=== PATIENT | female | born 1980 | race Caucasian/White ===

== ENCOUNTER 2023-06-10 12:17 | Outpatient (CLI) | payer BC, SELFPAY ==
[2023-06-10 13:44] LABS: HIV 1/2 Ab P24 Ag Result Negative (Negative)
[2023-06-10 13:51] LABS: Hepatitis B Surface Antigen Negative (Negative)
[2023-06-10 13:57] LABS: HAV RESULT Negative (Negative); Hepatitis B Core IgM Result Negative (Negative)
[2023-06-10 14:19] LABS: Hepatitis C Virus Antibody Reactive (Negative)
[2023-06-10 16:01] LABS: Rapid Plasma Reagin Non-Reactive (NonReactive)
[2023-06-13 06:38] LABS: Hepatitis C RNA, Quant PCR <15 IU/mL
== END 2023-06-10 12:18 | disposition home or self-care (01) ==
LOC: ANHLAB 12:19
PROVIDERS: PCP Internal Medicine; Visit Provider Obstetrics & Gynecology
DX: Z11.3 Encounter for screening for infections with a predominantly sexual mode of transmission (principal)
CPT/HCPCS: 36415; 80074; 86592; 86695; 86696; 86703; 87522; G0432

== ENCOUNTER 2023-09-03 12:31 | Emergency (ER) | payer BC, SELFPAY ==
[2023-09-03 12:43] VITALS: BP 137/72; PULSE 67; RESP 18; TEMP 36.9; O2SAT 100
--- NOTE | 2023-09-03 13:51 | ED.BACK ---
HPI - Back Pain/Injury General Chief Complaint: Back Pain/Injury Stated Complaint: severe neck and back pain Time Seen by Provider: 09/03/23 13:04 Source: patient Mode of arrival: ambulatory Limitations: no limitations History of Present Illness HPI Narrative: Is a 42-year-old female who presents to the ED with chief complaint of acute on chronic mid to upper back pain. Reports that for the past several weeks she has had a flare up of degenerative disc disease. Reports she has had injections to the cervical spine and shoulders in the past with good relief. However over the last couple of weeks, despite PT, pain is getting worse. She called her PCP who referred her over to the ED for further evaluation treatment. Denies fevers, chills, numbness, weakness, bowel or bladder dysfunction, saddle anesthesia, cancer history or night sweats. 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 She has been told that she may need to quit her job due to aggravating her pain. Related Data Allergies Allergy/AdvReac Type Severity Reaction Status Date / Time pseudoephedrine Allergy Severe Hives Verified 09/03/23 12:47 ibuprofen Allergy Mild Unknown Verified 09/03/23 12:47 Review of Systems Review of Systems: All systems as dictated in HPI [facility] Past Medical History Medical History (Updated 09/03/23 @ 13:54 by Aditya Juarez PA-C) Anxiety Encounter for screening examination for sexually transmitted disease GERD (gastroesophageal reflux disease) Hyperlipidemia Screening mammogram, encounter for Surgical History Surgical History (Updated 06/09/23 @ 09:00 by GIOVANNA Cochran) H/O left knee surgery (01/09/22) H/O tubal ligation (~2001) H/O: hysterectomy (~08/2005) TVH tumor inside uterus History of hysteroscopy (~1997) suction D&C missed AB History of laparoscopy (01/21/07) Laparoscopy Adhesiolysis Hx of cholecystectomy Family History Family History (Updated 06/09/23 @ 08:57 by GIOVANNA Cochran) Mother Heart disease Hypertension Father Hypertension Daughter Pacemaker syndrome Social History Social History (Updated 06/09/23 @ 08:59 by GIOVANNA Cochran) Smoking status: Never smoker Tobacco type: cigarettes and e-cigarettes/vaping Second hand tobacco smoke exposure: No Alcohol intake: former Alcohol use details: stopped 02/2023 Substance use: never Substance use type: does not use Do You Feel Safe in your Home?: Yes Lack of Transportation: No Lack of Food: Never True Current Housing: I Have Housing Concerned About Future Housing: No Difficulty Paying Gas/Electric Bills: No Difficulty Paying for Meds: No Currently Unemployed: No Education: High School Diploma/GED Difficulty w/ Childcare or Family Care: No Living arrangements: other Additional living arrangements comments: Occupation/Education: occupation 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 HEAD: Normocephalic, atraumatic. EYES: PERRLA and EOMI. ENT: Nares clear, no rhinorrhea or epistaxis. Mucous membranes moist. Oropharynx without tonsillar hypertrophy exudate or other lesions. NECK: Supple. No adenopathy or masses. No meningismus CHEST: No respiratory distress. Clear to auscultation. No wheezes rales or rhonchi HEART: Regular rate and rhythm. No murmur heard. Normal peripheral pulses. ABDOMEN: Soft, nontender, nondistended, normal active bowel sounds. MSK: Mild paraspinal tenderness to the thoracic and cervical spine. No midline spinal tenderness. 5/5 strength and sensation in the upper and lower extremities. SKIN: Warm, dry, no rash. NEURO: Alert and oriented x3. No focal deficits. PSYCH: Normal mood and affect. Course Lianne
[2023-09-03] MEDS: KETOROLAC 30 MG/ML VIAL (*BKC) IM (13:56)
== END 2023-09-03 14:08 | disposition home or self-care (01) ==
PROVIDERS: Emergency Provider Physician Assistant; PCP Internal Medicine
DX: K21.9 Gastro-esophageal reflux disease without esophagitis (principal); E78.5 Hyperlipidemia, unspecified; F17.210 Nicotine dependence, cigarettes, uncomplicated; F17.290 Nicotine dependence, other tobacco product, uncomplicated; Z90.710 Acquired absence of both cervix and uterus; Z90.49 Acquired absence of other specified parts of digestive tract
CPT/HCPCS: 96372; 99283; J1885

== ENCOUNTER 2023-09-21 09:47 | Outpatient (CLI) | payer BC, SELFPAY ==
--- NOTE | ~2023-09-21 | MR_ITS ---
EXAMINATION: MR cervical spine wo con DATE: 09/21/2023 10:30 INDICATION: Cervical radicular pain. TECHNIQUE: Magnetic resonance imaging (MRI) of the cervical spine was performed without intravenous c ontrast. COMPARISON: None FINDINGS: Bone alignment is normal. Vertebral body heights and intervertebral disc heights are normal . The spinal cord signal intensity is normal. The following disc levels are specifically discussed: C2-C3: The disc does not extend beyond the endplate margin. There is no uncovertebral joint osteoarth ritis. There is mild right and moderate left facet joint osteoarthritis. There is no neural foraminal stenosis. There is no central canal stenosis. C3-C4: There is a left central extrusion. There is mild left uncovertebral joint osteoarthritis. Ther e is moderate bilateral facet joint osteoarthritis. There is mild left neural foraminal stenosis. The re is mild central canal stenosis. C4-C5: There is a right central extrusion. There is mild bilateral uncovertebral joint osteoarthritis . There is mild right and severe left facet joint osteoarthritis. There is mild bilateral neural fora stefanie stenosis. There is mild central canal stenosis. C5-C6: There is a left central extrusion. There is mild left uncovertebral joint osteoarthritis. Ther e is mild left facet joint osteoarthritis. There is mild left neural foraminal stenosis. There is mil d central canal stenosis. C6-C7: The disc does not extend beyond the endplate margin. There is mild bilateral uncovertebral joselyn nt osteoarthritis. There is moderate right and mild left facet joint osteoarthritis. There is no neur al foraminal stenosis. There is no central canal stenosis. C7-T1: The disc does not extend beyond the endplate margin. There is no uncovertebral joint osteoarth ritis. There is mild bilateral facet joint osteoarthritis. There is mild left neural foraminal stenos is. There is no central canal stenosis. IMPRESSION: 1. Mild cervical spondylosis. Reviewed, dictated and finalized at location A.
== END 2023-09-21 09:48 ==
LOC: GOSHIMG 09:48
PROVIDERS: PCP Internal Medicine; Visit Provider Pain Medicine Pain Medicine
DX: M47.22 Other spondylosis with radiculopathy, cervical region (principal)
CPT/HCPCS: 72141

== ENCOUNTER 2024-03-17 08:22 | Emergency (ER) | payer OTHER, BC, SELFPAY ==
[2024-03-17 08:29] VITALS: BP 149/69; PULSE 61; RESP 18; TEMP 36.6; O2SAT 100
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
[2024-03-17] MEDS: KETOROLAC 30 MG/ML VIAL (*BKC) 15 MG IM (08:49)
[2024-03-17] MEDS: LIDOCAINE 5% PATCH 1 PATCH TRANSDERM (08:49)
== END 2024-03-17 09:07 | disposition home or self-care (01) ==
LOC: ANHED 08:41
PROVIDERS: Emergency Provider Emergency Medicine; PCP Internal Medicine
DX: S13.4XXA Sprain of ligaments of cervical spine, initial encounter (principal); E78.5 Hyperlipidemia, unspecified; K21.9 Gastro-esophageal reflux disease without esophagitis; Z90.710 Acquired absence of both cervix and uterus; Z90.49 Acquired absence of other specified parts of digestive tract; V49.40XA Driver injured in collision with unspecified motor vehicles in traffic accident, initial encounter
CPT/HCPCS: 96372; 99283; A9270; J1885

== ENCOUNTER 2024-07-02 10:04 | Emergency (ER) | payer OTHER, BC, SELFPAY ==
--- NOTE | ~2024-07-02 | XR_ITS ---
EXAMINATION: XR wrist RT min 3V DATE: 07/02/2024 12:34 INDICATION: Right wrist injury TECHNIQUE: Posteroanterior, ulnar deviation, oblique, and lateral views of the right wrist were obtai tabatha. COMPARISON: none FINDINGS: Alignment is normal. No fracture. Joint spaces are normal. Soft tissues are unremarkable. IMPRESSION: 1. Negative right wrist radiographs. Reviewed, dictated and finalized at location A. R AND DELIVERY NURSE
--- OUTSIDE RECORDS SUMMARY | 2024-07-02 10:07 | XMS_ITS | Data Portability ---
Author Organization [facility], Main Office Address [address] [place] [address] Assessment Encounter Date Assessment Date Assessment LastModified by Organization Details LastModified Time 07/23/2022 07/23/2022 Cut the Zoloft and half get a flu shot today follow-up with me in 6 weeks Not available 08/03/2022 13:49:02 09/03/2022 09/03/2022 Continue current therapy feeling better follow-up 3 months [email or web address] Not available 09/14/2022 14:18:26 12/03/2022 12/03/2022 Will check some routine blood work and get her seen by Neurology Gets trigger point injections for her neck and back Return to clinic 4 months [email or web address] Not available 12/04/2022 08:27:37 Plan of Treatment Reminders Order Date Submit Date Provider Last Modified By Organization Details Last Modified Time Details Appointments None recorded. Lab CBC 2022 023 [facility] (Lab), [address] [place], [address], 3 18:07:49 CMP, serum or plasma [address] (Lab), [address] [place], [address], 3 18:07:49 TSH, serum or plasma [address] (Lab), [address] [place], [address], 3 18:07:49 T4, free, serum [address] (Lab), [address] [place], [address], 3 18:07:49 T3, free, serum or plasma [address] (Lab), [address] [place], [address], 3 18:07:49 vitamin B12 + folate, serum or blood [address] (Lab), [address] [place], [address], 3 18:07:49 unlisted lab - lyme disease antibod 2022 023 [facility] (Lab), [address] [place], [address], 4 13:36:17 Referral neurologist referral 2022 023 [facility] Gilbert Smith MD, [address], [address], 4 12:26:48 Procedures None recorded. Surgeries None recorded. Imaging None recorded. Medication Orders None recorded. Patient TargetsNo targets recorded. Patient InstructionsNo instructions recorded. Reason for Referral Neurologist Referral for Mem ory impairment Referring Physician: Beau Westbrook, Internal Medicine, Encounter Date: 12/03/2022 Results Created Date Observation Date Name Description Value Unit Range Abnormal Flag Note LastModifiedBy Organization Detail LastModifiedTime 06/11/19 23 06/12/2022 HCV/H EPATI TIS C RT-PC R, QUANT hepatitis C quantitation commen t IU/mL HCV Not Detec edgardo Not Available [facility] (Lab) [address] [place], [address], 06/12/2022 20:08:43 06/11/19 23 06/12/2022 HCV/H EPATI TIS C RT-PC R, QUANT test information: commen t . The quant itati ve range of this assay is 15 IU/mL to 100 connie on IU/mL . Perfo rmed at: - [facility] [place] [address] [facility] , [place] [address] Lab Direc tor: Meghann carr MD, Phone : [phone] Not Available [facility] (Lab) [address] [place], [address], 06/12/2022 20:08:43 06/11/19 23 06/12/2022 AFP, SERUM , TUMOR MARKE R AFP, serum, tumor marker 4.8 NG/mL 0.0-6. 4 [facility] Elect jaya milum inesc ence Immun oassa y (ECLI A) . Value s obtai tabatha with diffe rent assay metho ds or kits canno t be used inter mejia eably . Resul ts canno t be inter prete d as absol bhavana evide nce of the prese nce or absen ce of arian akins se. . This test is not inter preta ble in pregn ant femal es. Perfo rmed at: - [facility] n [address] [place] [address] Lab Direc tor: Sanchez jacobs PhD, Phone : [phone] Not Available [facility] (Lab) [address] [place], [address], 06/12/2022 08:14:10 06/11/19 23 06/11/2022 SEDIM ENTAT ION RATE erythrocyte sedimentatio n rate 10 mm/HR 0-20 Not Available [facility] (Lab) [address] [place] [address], [address], 06/11/2022 15:54:17 06/11/19 23 06/11/2022 TSH thyroid-stim ulating hormone 0.581 uIU/m L 0.465- 4.680 Not Available [facility] (Lab) [address] [place], [address], 06/11/2022 15:47:59 06/11/19 23 06/11/2022 LIPID PANEL cholesterol 201 mg/dL 140-19 9 high NIH KRISTOPHER NSUS RECOM MENDA TION FOR SILVIA STERO L: ADULT CHILD LOW RISK: <200 <170 BORDE RLINE : <200- 239 ----- HIGH RISK: >240 >200 Not Available [facility] (Lab) [address] [place], [address], 06/11/2022 15:35:39 06/11/19 23 06/11/2022 LIPID PANEL triglyceride s 87 mg/dL 0-150 NIH KRISTOPHER NSUS REPOR T RECOM MENDA TION FOR TRIGL YCERI MARY ANN: ADULT CHILD LOW RISK: <150 ----- BODER LINE: 150-1 99 ----- HIGH RISK: >200 ----- Not Available [facility] (Lab) [address] [place], [address], 06/11/2022 15:35:39 06/11/19 23 06/11/2022 LIPID PANEL HDL cholesterol 54 mg/dL 40- Not Available [facility] (Lab) [address] [place], [address], 06/11/2022 15:35:39 06/11/19 23 06/11/2022 LIPID PANEL LDL cholesterol, calculated 130 mg/dL 0-130 NIH KRISTOPHER NSUS REPOR T RECOM MENDA TIONS FOR LDL: ADULT CHILD LOW RISK <130 <110 (OPTI MAL LDL) <100 ----- BORDE RLINE : 130-1 59 ----- HIGH RISK: >160 >130 A TRIGL YCERI DE RESUL T >400 INVAL IDATE S THE CALCU LATIO N FOR LDL FRACT IONAT ION - THE LDL RESUL T WILL NOT BE REPOR EDGARDO. Not Available [facility] (Lab) [address] [place], [address], 06/11/2022 15:35:39 06/11/19 23 06/11/2022 COMPR EHENS SANDY METAB OLIC PANEL sodium 141 mmol/ L 137-14 5 Not Available [facility] (Lab) [address] [place], [address], 06/11/2022 15:35:35 06/11/19 23 06/11/2022 COMPR EHENS SANDY METAB OLIC PANEL potassium 4.0 mmol/ L 3.5-5. 1 Not Available [facility] (Lab) [address] [place], [address], 06/11/2022 15:35:35 06/11/19 23 06/11/2022 COMPR EHENS SANDY METAB OLIC PANEL chloride 102 mmol/ L 98-107 Not Available [facility] (Lab) [address] [place], [address], 06/11/2022 15:35:35 06/11/19 23 06/11/2022 COMPR EHENS SANDY METAB OLIC PANEL carbon dioxide 29 mmol/ L 22-30 Not Available [facility] (Lab) [address] [place], [address], 06/11/2022 15:35:35 06/11/19 23 06/11/2022 COMPR EHENS SANDY METAB OLIC PANEL anion gap 14.0 mmol/ L 14-22 Not Available [facility] (Lab) [address] [place], [address], 06/11/2022 15:35:35 06/11/19 23 06/11/2022 COMPR EHENS SANDY METAB OLIC PANEL glucose 143 mg/dL 70-99 high Not Available [facility] (Lab) [address] [place], [address], 06/11/2022 15:35:35 06/11/19 23 06/11/2022 COMPR EHENS SANDY METAB OLIC PANEL BUN 14 mg/dL 8-19 Not Available [facility] (Lab) [address] [place], [address], 06/11/2022 15:35:35 06/11/19 23 06/11/2022 COMPR EHENS SANDY METAB OLIC PANEL creatinine 0.85 mg/dL 0.66-1 .25 Not Available [facility] (Lab) [address] [place], [address], 06/11/2022 15:35:35 06/11/1906/11/2022 COMPR EHENS SANDY METAB OLIC PANEL GFR >60 Refer ence Range : [place] ge GFR Healt hy Adult : >60 mL/mi n/1.7 3 m2 Chron ic Kidne y Disea se: 15-60 mL/mi n/1.7 3 m2 Kidne y Failu re: <15/m L/min /1.73 m2 www.n iddk. nih.g ov The MDRD study equat ion has not been valid ated in child olvin <18 years of age; pregn ant women ; the elder ly >85 years of age; or in some racia l or ethni c subgr oups, such as Hiswv nics. Outsi de the valid ated darlyn eters , estim ated GFR is less accur ate, requi ring clini igor judgm ent on a case- by-ca se basis . Clini igor inter preta tion for other races and ages must be made by the clini dorene. The MDRD study equat ion has not been valid ated for the evalu ation of serum creat inine relat ed to nutri mary l statu s or medic ation usage . For perso ns <18 years of age, a pedia tric GFR calcu lator is avail able on the [facility] websi te: https ://tara christian.o rg/pr олегess ional s/kdo qi/gf r_cal culat or Not Available [facility] (Lab) [address] [place], [address], 06/11/2022 15:35:35 06/11/19 23 06/11/2022 COMPR EHENS SANDY METAB OLIC PANEL alkaline phosphatase 63 U/L 38-126 Not Available [facility] (Lab) [address] [place], [address], 06/11/2022 15:35:35 06/11/19 23 06/11/2022 COMPR EHENS SANDY METAB OLIC PANEL alanine aminotransfe rase 19 U/L 0-35 Not Available [facility] (Lab) [address] [place], [address], 06/11/2022 15:35:35 06/11/19 23 06/11/2022 COMPR EHENS SANDY METAB OLIC PANEL aspartate aminotransfe rase 26 U/L 15-37 Not Available [facility] (Lab) [address] [place], [address], 06/11/2022 15:35:35 06/11/19 23 06/11/2022 COMPR EHENS SANDY METAB OLIC PANEL bilirubin, total 0.70 mg/dL 0.20-1 .30 Not Available [facility] (Lab) [address] [place], [address], 06/11/2022 15:35:35 06/11/19 23 06/11/2022 COMPR EHENS SANDY METAB OLIC PANEL calcium 9.5 mg/dL 8.4-10 .2 Not Available [facility] (Lab) [address] [place], [address], 06/11/2022 15:35:35 06/11/19 23 06/11/2022 COMPR EHENS SANDY METAB OLIC PANEL total protein 7.6 g/dL 6.3-8. 2 Not Available [facility] (Lab) [address] [place], [address], 06/11/2022 15:35:35 06/11/19 23 06/11/2022 COMPR EHENS SANDY METAB OLIC PANEL albumin 4.4 g/dL 3.4-5. 0 Not Available [facility] (Lab) [address] [place], [address], 06/11/2022 15:35:35 06/11/19 23 06/11/2022 COMPR EHENS SANDY METAB OLIC PANEL globulin 3.2 g/dL 2.6-4. 2 Not Available [facility] (Lab) [address] [place], [address], 06/11/2022 15:35:35 06/11/19 23 06/11/2022 COMPR EHENS SANDY METAB OLIC PANEL A/G ratio 1.4 ratio 1.0-2. 0 Not Available [facility] (Lab) [address] [place], [address], 06/11/2022 15:35:35 06/11/19 23 06/11/2022 T3 FREE free T3 3.0 pg/mL 2.77-5 .27 Not Available [facility] (Lab) [address] [place], [address], 06/11/2022 15:26:23 06/11/19 23 06/11/2022 T4 FREE free T4 0.95 NG/dL 0.78-2 .19 Not Available [facility] (Lab) [address] [place], [address], 06/11/2022 15:26:21 06/11/19 23 06/11/2022 C REACT SANDY PROTE IN,UL TRA SENS C-reactive protein 0.31 mg/dL 0.0-0. 5 Not Available [facility] (Lab) [address] [facility] [place], [address], 06/11/2022 15:25:20 06/11/19 23 06/11/2022 CBC/C OMPLE TE BLD COUNT W/DIF F white blood cells 8.4 x10'3 /uL 4.2-10 .8 Not Available [facility] (Lab) [address] [place], [address], 06/11/2022 15:03:57 06/11/19 23 06/11/2022 CBC/C OMPLE TE BLD COUNT W/DIF F red blood cells 4.83 x10'6 /uL 3.80-5 .20 Not Available [facility] (Lab) [address] [place], [address], 06/11/2022 15:03:57 06/11/19 23 06/11/2022 CBC/C OMPLE TE BLD COUNT W/DIF F hemoglobin 14.6 g/dL 12.0-1 5.6 Not Available [facility] (Lab) [address] [place], [address], 06/11/2022 15:03:57 06/11/19 23 06/11/2022 CBC/C OMPLE TE BLD COUNT W/DIF F hematocrit 43.5 % 35.7-4 5.7 Not Available [facility] (Lab) [address] [place], [address], 06/11/2022 15:03:57 06/11/19 23 06/11/2022 CBC/C OMPLE TE BLD COUNT W/DIF F mean red cell volume 90.1 fL 82.0-9 9.0 Not Available [facility] (Lab) [address] [place], [address], 06/11/2022 15:03:57 06/11/19 23 06/11/2022 CBC/C OMPLE TE BLD COUNT W/DIF F mean red cell hemoglobin 30.2 pg 27.0-3 3.0 Not Available [facility] (Lab) [address] [place], [address], 06/11/2022 15:03:57 06/11/19 23 06/11/2022 CBC/C OMPLE TE BLD COUNT W/DIF F mean RBC HGB concentratio n 33.6 g/dL 31.0-3 6.0 Not Available [facility] (Lab) [address] [place], [address], 06/11/2022 15:03:57 06/11/19 23 06/11/2022 CBC/C OMPLE TE BLD COUNT W/DIF F red cell distribution width 12.0 % 11.8-1 5.5 Not Available [facility] (Lab) [address] [place], [address], 06/11/2022 15:03:57 06/11/19 23 06/11/2022 CBC/C OMPLE TE BLD COUNT W/DIF F platelets 361 x10'3 /uL 150-40 0 Not Available [facility] (Lab) [address] [place], [address], 06/11/2022 15:03:57 06/11/19 23 06/11/2022 CBC/C OMPLE TE BLD COUNT W/DIF F mean platelet volume 11.2 fL 9.0-12 .4 Not Available [facility] (Lab) [address] [place], [address], 06/11/2022 15:03:57 06/11/19 23 06/11/2022 CBC/C OMPLE TE BLD COUNT W/DIF F neutrophils 66.0 % 39.0-7 2.0 Not Available [facility] (Lab) [address] [place], [address], 06/11/2022 15:03:57 06/11/19 23 06/11/2022 CBC/C OMPLE TE BLD COUNT W/DIF F lymphocytes 27.1 % 16.0-4 7.0 Not Available [facility] (Lab) [address] [place], [address], 06/11/2022 15:03:57 06/11/19 23 06/11/2022 CBC/C OMPLE TE BLD COUNT W/DIF F monocytes 4.3 % 5.0-12 .0 low Not Available [facility] (Lab) [address] [place], [address], 06/11/2022 15:03:57 06/11/19 23 06/11/2022 CBC/C OMPLE TE BLD COUNT W/DIF F eosinophils 1.3 % 1.0-7. 0 Not Available [facility] (Lab) [address] [place], [address], 06/11/2022 15:03:57 06/11/1906/11/2022 CBC/C OMPLE TE BLD COUNT W/DIF F basophils 1.1 % 0.0-2. 0 Not Available [facility] (Lab) [address] [place], [address], 06/11/2022 15:03:57 06/11/19 23 06/11/2022 CBC/C OMPLE TE BLD COUNT W/DIF F immature granulocytes 0.2 % 0.00-0 .50 Not Available [facility] (Lab) [address] [place], [address], 06/11/2022 15:03:57 06/11/19 23 06/11/2022 CBC/C OMPLE TE BLD COUNT W/DIF F neutrophils, absolute count 5.56 x10'3 /uL 1.5-8. 0 Not Available [facility] (Lab) [address] [place], [address], 06/11/2022 15:03:57 06/11/19 23 06/11/2022 CBC/C OMPLE TE BLD COUNT W/DIF F lymphocytes, absolute count 2.28 x10'3 /uL 1.07-3 .43 Not Available [facility] (Lab) [address] [place], [address], 06/11/2022 15:03:57 06/11/19 23 06/11/2022 CBC/C OMPLE TE BLD COUNT W/DIF F monocytes, absolute count 0.36 x10'3 /uL 0.29-0 .99 Not Available [facility] (Lab) [address] [place], [address], 06/11/2022 15:03:57 06/11/19 23 06/11/2022 CBC/C OMPLE TE BLD COUNT W/DIF F eosinophils, absolute count 0.11 x10'3 /uL 0.02-0 .53 Not Available [facility] (Lab) [address] [place], [address], 06/11/2022 15:03:57 06/11/19 23 06/11/2022 CBC/C OMPLE TE BLD COUNT W/DIF F basophils, absolute count 0.09 x10'3 /uL 0.01-0 .08 high Not Available [facility] (Lab) [address] [place], [address], 06/11/2022 15:03:57 06/11/19 23 06/11/2022 CBC/C OMPLE TE BLD COUNT W/DIF F immature granulocytes ,absolute 0.02 x10'3 /uL 0.00-0 .05 Not Available [facility] (Lab) [address] [place], [address], 06/11/2022 15:03:57 06/11/19 23 06/11/2022 CBC/C OMPLE TE BLD COUNT W/DIF F nucleated red blood cells 0.0 % -0 Not Available [facility] (Lab) [address] [place], [address], 06/11/2022 15:03:57 06/11/19 23 06/11/2022 CBC/C OMPLE TE BLD COUNT W/DIF F NRBC# 0.00 x10'3 /uL Not Available [facility] (Lab) [address] [place], [address], 06/11/2022 15:03:57 12/04/19 23 12/03/2022 CBC W/O DIFFE RENTI AL white blood cells 5.3 x10'3 /uL 4.2-10 .8 Not Available [facility] (Lab) [address] [place], [address], 12/03/2022 12:08:58 12/04/19 23 12/03/2022 CBC W/O DIFFE RENTI AL red blood cells 4.49 x10'6 /uL 3.80-5 .20 Not Available [facility] (Lab) [address] [place], [address], 12/03/2022 12:08:58 12/04/19 23 12/03/2022 CBC W/O DIFFE RENTI AL hemoglobin 14.1 g/dL 12.0-1 5.6 Not Available [facility] (Lab) [address] [place], [address], 12/03/2022 12:08:58 12/04/19 23 12/03/2022 CBC W/O DIFFE RENTI AL hematocrit 41.8 % 35.7-4 5.7 Not Available [facility] (Lab) [address] [place], [address], 12/03/2022 12:08:58 12/04/1912/03/2022 CBC W/O DIFFE RENTI AL mean red cell volume 93.1 fL 82.0-9 9.0 Not Available [facility] (Lab) [address] [place], [address], 12/03/2022 12:08:58 12/04/19 23 12/03/2022 CBC W/O DIFFE RENTI AL mean red cell hemoglobin 31.4 pg 27.0-3 3.0 Not Available [facility] (Lab) [address] [place], [address], 12/03/2022 12:08:58 12/04/19 23 12/03/2022 CBC W/O DIFFE RENTI AL mean RBC HGB concentratio n 33.7 g/dL 31.0-3 6.0 Not Available [facility] (Lab) [address] [facility] [place], [address], 12/03/2022 12:08:58 12/04/19 23 12/03/2022 CBC W/O DIFFE RENTI AL red cell distribution width 11.5 % 11.8-1 5.5 low Not Available [facility] (Lab) [address] [place], [address], 12/03/2022 12:08:58 12/04/19 23 12/03/2022 CBC W/O DIFFE RENTI AL platelets 308 x10'3 /uL 150-40 0 Not Available [facility] (Lab) [address] [place], [address], 12/03/2022 12:08:58 12/04/19 23 12/03/2022 CBC W/O DIFFE RENTI AL mean platelet volume 11.2 fL 9.0-12 .4 Not Available [facility] (Lab) [address] [place], [address], 12/03/2022 12:08:58 12/04/19 23 12/03/2022 COMPR EHENS SANDY METAB OLIC PANEL sodium 140 mmol/ L 137-14 5 Not Available [facility] (Lab) [address] [place], [address], 12/03/2022 12:32:33 12/04/19 23 12/03/2022 COMPR EHENS SANDY METAB OLIC PANEL potassium 4.2 mmol/ L 3.5-5. 1 Not Available [facility] (Lab) [address] [place], [address], 12/03/2022 12:32:33 12/04/19 23 12/03/2022 COMPR EHENS SANDY METAB OLIC PANEL chloride 102 mmol/ L 98-107 Not Available [facility] (Lab) [address] [place], [address], 12/03/2022 12:32:33 12/04/19 23 12/03/2022 COMPR EHENS SANDY METAB OLIC PANEL carbon dioxide 29 mmol/ L 22-30 Not Available [facility] (Lab) [address] [place], [address], 12/03/2022 12:32:33 12/04/19 23 12/03/2022 COMPR EHENS SANDY METAB OLIC PANEL anion gap 13.2 mmol/ L 14-22 low Not Available [facility] (Lab) [address] [place], [address], 12/03/2022 12:32:33 12/04/19 23 12/03/2022 COMPR EHENS SANDY METAB OLIC PANEL glucose 92 mg/dL 70-99 Not Available [facility] (Lab) [address] [place], [address], 12/03/2022 12:32:33 12/04/19 23 12/03/2022 COMPR EHENS SANDY METAB OLIC PANEL BUN 12 mg/dL 8-19 Not Available [facility] (Lab) [address] [place], [address], 12/03/2022 12:32:33 12/04/19 23 12/03/2022 COMPR EHENS SANDY METAB OLIC PANEL creatinine 0.77 mg/dL 0.66-1 .25 Not Available [facility] (Lab) [address] [place], [address], 12/03/2022 12:32:33 12/04/19 23 12/03/2022 COMPR EHENS SANDY METAB OLIC PANEL GFR >60 Refer ence Range : [place] ge GFR Healt hy Adult : >60 mL/mi n/1.7 3 m2 Chron ic Kidne y Disea se: 15-60 mL/mi n/1.7 3 m2 Kidne y Failu re: <15/m L/min /1.73 m2 www.n iddk. nih.g ov The MDRD study equat ion has not been valid ated in child olvin <18 years of age; pregn ant women ; the elder ly >85 years of age; or in some racia l or ethni c subgr oups, such as Hispa nics. Outsi de the valid ated darlyn eters , estim ated GFR is less accur ate, requi ring clini igor judgm ent on a case- by-ca se basis . Clini igor inter preta tion for other races and ages must be made by the clini dorene. The MDRD study equat ion has not been valid ated for the evalu ation of serum creat inine relat ed to nutri mary l statu s or medic ation usage . For perso ns <18 years of age, a pedia tric GFR calcu lator is avail able on the [facility] websi te: https ://tara w.kid anahi.o rg/pr ofess ional s/kdo qi/gf r_cal culat or Not Available [facility] (Lab) [address] [place], [address], 12/03/2022 12:32:33 12/04/19 23 12/03/2022 COMPR EHENS SANDY METAB OLIC PANEL alkaline phosphatase 42 U/L 38-126 Not Available [facility] (Lab) [address] [place], [address], 12/03/2022 12:32:33 12/04/19 23 12/03/2022 COMPR EHENS SANDY METAB OLIC PANEL alanine aminotransfe rase 15 U/L 0-35 Not Available [facility] (Lab) [address] [place], [address], 12/03/2022 12:32:33 12/04/19 23 12/03/2022 COMPR EHENS SANDY METAB OLIC PANEL aspartate aminotransfe rase 22 U/L 15-37 Not Available [facility] (Lab) [address] [facility] [place], [address], 12/03/2022 12:32:33 12/04/19 23 12/03/2022 COMPR EHENS SANDY METAB OLIC PANEL bilirubin, total 0.60 mg/dL 0.20-1 .30 Not Available [facility] (Lab) [address] [place], [address], 12/03/2022 12:32:33 12/04/19 23 12/03/2022 COMPR EHENS SANDY METAB OLIC PANEL calcium 8.8 mg/dL 8.4-10 .2 Not Available [facility] (Lab) [address] [place], [address], 12/03/2022 12:32:33 12/04/19 23 12/03/2022 COMPR EHENS SANDY METAB OLIC PANEL total protein 7.5 g/dL 6.3-8. 2 Not Available [facility] (Lab) [address] [place], [address], 12/03/2022 12:32:33 12/04/19 23 12/03/2022 COMPR EHENS SANDY METAB OLIC PANEL albumin 4.5 g/dL 3.4-5. 0 Not Available [facility] (Lab) [address] [place], [address], 12/03/2022 12:32:33 12/04/19 23 12/03/2022 COMPR EHENS SANDY METAB OLIC PANEL globulin 3.0 g/dL 2.6-4. 2 Not Available [facility] (Lab) [address] [place], [address], 12/03/2022 12:32:33 12/04/19 23 12/03/2022 COMPR EHENS SANDY METAB OLIC PANEL A/G ratio 1.5 ratio 1.0-2. 0 Not Available [facility] (Lab) [address] [place], [address], 12/03/2022 12:32:33 12/04/19 23 12/03/2022 T4 FREE free T4 0.93 NG/dL 0.78-2 .19 Not Available [facility] (Lab) [address] [place], [address], 12/03/2022 12:38:34 12/04/19 23 12/03/2022 T3 FREE free T3 3.0 pg/mL 2.77-5 .27 Not Available [facility] (Lab) [address] [place], [address], 12/03/2022 12:38:37 12/04/19 23 12/03/2022 TSH thyroid-stim ulating hormone 0.509 uIU/m L 0.465- 4.680 Not Available [facility] (Lab) [address] [place], [address], 12/03/2022 12:53:19 12/04/19 23 12/03/2022 VITAM IN B12 ([place] ) vb12 407 pg/mL 239-93 1 Not Available [facility] (Lab) [address] [place], [address], 12/03/2022 13:36:05 12/04/19 23 12/03/2022 FOLAT E, SERUM /PLAS MA folate 11.0 NG/mL 2.76-2 0.0 Not Available [facility] (Lab) [address] [place], [address], 12/03/2022 13:36:11 12/04/19 23 12/04/2022 LYME, TOTAL AB TEST/ REFLE X lyme total antibody Negati ve negati ve Lyme antib odies not detec edgardo. Refle x testi ng is not indic ated. No labor atory evide nce of infec tion with B. burgd orfer i (Lyme disea se). Negat sandy resul ts may occur in patie nts recen tly infec edgardo (less than or equal to 14 days) with B. burgd orfer i. If recen t infec tion is suspe cted, repea t testi ng on a new sampl e colle cted in 7 to 14 days is recom jasen Ying rmed at: [address], [place] [address] Lab Direc tor: Sanchez jacobs PhD, Phone : [phone] Not Available [facility] (Lab) [address] [place], [address], 12/04/2022 12:12:21 06/11/19 23 06/11/2022 elect rocar diogr am No observ ation record ed. [id number] [facility] [address] [facility], [address], [address], 07/10/2022 01:49:29 06/11/19 [facility] rocmn diogr am No observ ation record ed. [id number] _[facility] [place] [address] [facility], [facility] [address], [place], [address], 07/10/2022 01:49:29 06/25/19 23 06/25/2022 , [facility] libia gram No observ ation record ed. [id number] [facility] ([facility]) [address] [place], [address], 07/10/2022 01:49:29 06/25/19 23 06/25/2022 MRI, cervi igor spine , w/o contr ast [facility] [address] [place] [address] [phone] Patien t Name: SHANNA WILLS Access ion #: [id number] Sex: F : 1980 0 Locati on: RAD Attend ing Physic kodi: LILA WESTBROOK Orderi ng Physic kodi: LILA WESTBROOK Exam Date: 023 7:04 AM Exam Name: MRI C SPINE WO Admitt ing Diagno sis(es ): RADIOL OGY REPORT - FINAL EXAM: MRI C SPINE WO HISTOR Y: dizzin ess/ce rvical radicu lopath y 41-yea r-old female with neck pain radiat ing to the left upper extrem ity, left upper extrem ity numbne ss, injury on 2021. COMPAR JAIDEN: None availa ble. TECHNI QUE: Multip lanar multis equenc e noncon trast MR images of the cervic al spine were perfor med. FINDIN GS: No fractu re or listhe sis in the cervic al spine. There is 5 mm right cerebe llar tonsil lar ectopi a. No abnorm al signal in the cervic al spinal cord. There is adenoi d tonsil lar hypert rophy with narrow ing of the Page 1 of 3 [facility] Patien t Name: SHANNA WILLS Access ion #: [id number] Sex: F : 1980 0 Exam Date: 023 7:04 AM Exam Name: MRI C SPINE WO Admitt ing Diagno sis(es ): nasoph arynge al airway . C2-C3: No signif icant discop athy, spinal canal stenos is, or neural forami nal stenos is bilate rally. There is left facet hypert rophy. C3-C4: There is a circum ferent ial broad disc bulge, most promin ent in the left parace ntral region . The AP dimens ion of the spinal canal measur es 10 mm in the midlin e. There is mild mass effect on the left anteri or margin of the cervic al spinal cord at this level (image 9, series 6; image 10, series 3). There is bilate ral facet hypert rophy and left uncina te proces s hypert rophy. There is mild left and no signif icant right neural forami nal stenos is. C4-C5: There is a centra l disc hernia tion measur ing 1.8 mm AP in the midlin e (image 13, series 6). The AP dimens ion of the spinal canal measur es 10 mm. There is mild mass effect on the anteri or margin of the cervic al spinal cord. There is bilate ral facet and uncina te proces s hypert rophy. There is mild bilate ral neural forami nal stenos is. C5-C6: No signif icant discop athy, spinal canal stenos is, or neural forami nal stenos is bilate rally. There is mild bilate ral facet hypert rophy. C6-C7: No signif icant discop athy, spinal canal stenos is, or neural forami nal stenos is bilate rally. There is mild bilate ral facet hypert rophy. IMPRES JIM: 1. No fractu re of the cervic al spine. 2. Degene rative disc diseas e and facet arthro case with mild mass effect on the cervic al spinal cord at C3-C4 and C4-C5. Recomm end spinal surger y consul tation if not alread y obtain ed. Page 2 of 3 [facility] Patien t Name: SHANNA WILLS Access ion #: [id number] Sex: F : 1980 0 Exam Date: 7:04 AM Exam Name: MRI C SPINE WO Admitt ing Diagno sis(es ): 3. No signif icant neural forami nal stenos is is identi fied at any level in the cervic al spine bilate rally. 4. 5 mm right cerebe llar tonsil lar ectopi a consis tent with border line Chiari I malfor mation . 5. Adenoi d tonsil lar hypert rophy with narrow ing of the nasoph arynge al airway . Create d and electr onical ly signed by: Steven laws MD Signed Date: 9:25 AM (CT) Dictat ed by: Steven laws MD DD: 9:25 AM (CT) DT: 2/15/2 023 9:25 AM (CT) Page 3 of 3 [id number].[id number] [facility] (Imaging) [address] [place], [address], 07/10/2022 01:49:29 06/25/19 23 06/25/2022 US, duple x, carot id arter y No observ ation record ed. [id number] [facility] Add On Lab Orders [address] [place], [address], 07/10/2022 01:49:29 06/25/19 23 06/25/2022 MRI, brain , w/o contr ast [facility] [place] [address] [facility] [place] [address] [phone] Patien t Name: SHANNA WILLS Access ion #: [id number] Sex: F : 1980 0 Locati on: RAD Attend ing Physic kodi: LILA WESTBROOK Orderi ng Physic kodi: LILA WESTBROOK Exam Date: 023 7:04 AM Exam Name: MRI BRAIN WO Admitt ing Diagno sis(es ): RADIOL OGY REPORT - FINAL EXAM: MRI BRAIN WO HISTOR Y: dizzin ess/ce rvical radicu lopath y 41-yea r-old female with dizzin ess, left upper extrem ity numbne ss. COMPAR JAIDEN: None availa ble. TECHNI QUE: Multip lanar multis equenc e noncon trast MR images of the brain were perfor med. FINDIN GS: No intrac ranial mass, midlin e shift, or hydroc ephalu s. There is an old left anteri or basal gangli a infarc t (image s 16-19, series 6 and 7). There is a tiny cavum septum pelluc idum. No eviden ce of acute infarc t on the diffus ion-we ighted images . Flow voids are presen t in the major intrac ranial vessel s. The corpus callos um, sella, and pituit ilan are unrema rkable . There Page 1 of 2 [facility] Patien t Name: SHANNA WILLS Access ion #: [id number] Sex: F : 1980 0 Exam Date: 023 7:04 AM Exam Name: MRI BRAIN WO Admitt ing Diagno sis(es ): is 5 mm right cerebe llar tonsil lar ectopi a. The optic globes are symmet sampson. There is a small mucous retent ion cyst in the right maxill ilan sinus. There is mild mucosa l thicke cora of the bilate ral maxill ilan sinuse s. The other parana patricia sinuse s are clear. There is a small right chucky bullos a. There are bilate ral Alexandra cells. The bilate ral mastoi d air cells are clear. There is adenoi d tonsil lar hypert rophy with modera te narrow ing of the nasoph arynge al airway . There is lingua l tonsil lar hypert rophy with efface ment of the vallec shad IMPRES JIM: 1. No eviden ce of acute infarc t or other acute intrac ranial proces s. 2. Old infarc t of the left basal gangli a. 3. 5 mm right cerebe llar tonsil lar ectopi a consis tent with border line Chiari I malfor mation . 4. Mild bilate ral maxill ilan sinus diseas e. 5. Adenoi d and lingua l tonsil lar hypert rophy. Create d and electr onical ly signed by: Steven laws MD Signed Date: 023 9:08 AM (CT) Dictat ed by: Steven laws MD DD: 023 9:08 AM (CT) DT: 023 9:08 AM (CT) Page 2 of 2 [id number] [facility] (Imaging) [address] [place], [address], 07/10/2022 01:49:29 07/29/19 23 merlene r monit or No observ ation record ed. [email or web address] [facility] [address], [place], [address], 08/04/2022 09:41:25 09/09/19 24 09/09/2023 XR, thora cic spine , 3 [facility] [address] [place] [address] [phone] Diann hairston Name: SHANNA WILLS Access ion #: [id number] Sex: F : 1980 1 0 Locati on: RAD Attend ing Physic kodi: LILA WESTBROOK Orderi ng Physic kodi: LILA WESTBROOK Exam Date: 09/09/19 9:45 AM Exam Name: XR T SPINE 3V Admitt ing Diagno sis(es ): RADIOL OGY REPORT - FINAL EXAM: XR T SPINE 3V HISTOR Y: THORAC IC BACK PAIN 42-yea r-old female with back pain for 1 year. COMPAR JAIDEN: None availa ble. TECHNI QUE: Three views of the thorac ic spine were perfor med. FINDIN GS: No fractu re or listhe sis are identi fied about the thorac ic spine. There is mild S-shap ed scolio sis. There is mild thorac ic degene rative disc diseas e. IMPRES JIM: 1. No fractu re of the thorac ic spine. 2. Mild thorac ic S-shap ed scolio sis and spondy losis. Page 1 of 2 [facility] Diann t Name: SHANNA WILLS Access ion #: [id number] Sex: F : 1980 1 0 Exam Date: 09/09/19 9:45 AM Exam Name: XR T SPINE 3V Admitt ing Diagno sis(es ): Create d and electr onical ly signed by: Steven laws MD Signed Date: 09/09/19 11:20 AM (CT) Dictat ed by: Steven laws MD (CT) (CT) Page 2 of [email or web address] (Imaging) [address] [place], [address], 11/24/2023 08:58:56 03/18/2003/18/2024 XR, cervi igor spine , 4 or 5 view [facility] [address] [facility] [place] [address] Patien t Name: SHANNA WILLS Access ion #: [id number] Sex: F : 1980 1 8 Dictat ed By: Allen White Attend ing Physic kodi: LILA WESTBROOK Orderi ng Physic kodi: LILA WESTBROOK Exam Date: 2023 11:38 AM Exam Name: XR C SPINE 4-5V Admitt ing Diagno sis(es ): ACCESS ION #: [id number] INDICA TION: Neck pain COMPAR JAIDEN: XR T SPINE 3V on DOS: 09/09/23 TECHNI QUE: 5 views of the cervic al spine were obtain ed. FINDIN GS: The cervic al verteb ral alignm ent is normal . The preden blanca space is normal . The interv ertebr al disc spaces are well-m aintai tabatha. No signif icant facet arthro case is noted. No acute fractu re, verteb ral compre ssion deform ity or aggres sive osseou s lesion s. The imaged lung apices are unrema rkable . IMPRES JIM: No acute fractu re. Electr onical ly Signed by: Allen White at 2023 12:48: 17 PM Page 1 [email or web address] [facility] (Imaging) [address] [place], [address], 03/24/2024 10:49:55 Result Notes None recorded. Problems Name Problem SNOMED Code Status Onset Date Resolution Date Notes Provider Name and Address Organization Details Recorded Time Electroca rdiogram abnormal 802915522 Active 2022 Not Available [facility] 3 06:59:23 Pain in left arm 365640466 Active 2022 Not Available [facility] 3 06:59:23 Pain in left arm 811264874 Active 2022 Not Available [facility] 3 06:59:23 Dizziness 459261373 Active 2022 Not Available [facility] 3 06:59:23 Cervical disc disorder 911995146 Active 2022 Not Available [facility] 3 06:59:24 Cervical radiculop athy 78769805 Active 2022 Not Available [facility] 3 06:59:24 Hyperglyc emia 77998221 Active 2022 Not Available [facility] 3 06:59:24 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 Procedures Surgical History Date Name Laterality Status Provider Name and Address Organization Details Recorded Time 2 Knee completed Not Available [facility] 3 01:48:26 Hysterectomy , Partial completed Not Available [facility] 07/10/2022 01:48:26 Imaging Results Imaging Date Name Status LastModified by Organization Details LastModified Time 06/25/2022 US, echocardiogram completed [id number] .[id number] [facility] (One Call Scheduling) [address] [place], [address], 07/10/2022 01:49:29 06/25/2022 MRI, cervical spine, w/o contrast completed MIGRATION.[id number] [facility] (Imaging) [address] [place], [address], 07/10/2022 01:49:29 06/11/2022 electrocardiogram completed MIGRATION. [id number] [facility] [address] [facility], , [place], [address], 07/10/2022 01:49:29 06/11/2022 electrocardiogram completed MIGRATION. [id number] [id number] [facility] [address], [place], [address], 07/10/2022 01:49:29 06/25/2022 US, duplex, carotid artery completed MIGRATION.[id number] [facility] Add On Lab Orders [address] [place], [address], 07/10/2022 01:49:29 06/25/2022 MRI, brain, w/o contrast completed [id number].[id number] [facility] (Imaging) [address] [place], [address], 07/10/2022 01:49:29 07/28/2022 holter monitor completed [email or web address] [facility] [address], [place], [address], 08/04/2022 09:41:25 09/09/2023 XR, thoracic spine, 3 view completed [address] (Imaging) [address] [place], [address], 11/24/2023 08:58:56 03/18/2024 XR, cervical spine, 4 or 5 view completed [address] (Imaging) [address] [place], [address], 03/24/2024 10:49:55 Procedure Notes None recorded. Medical Equipment None Reported. Allergies No known drug allergies Medications Name Sig Start Date Stop Date Status Note LastModified by Organization Details LastModified Time tizanidine 4 mg tablet TAKE 1 TABLET BY MOUTH EVERY DAY AT BEDTIME 12/03 completed Not Available Not Available Not Available hydrocodone 5 mg-acetamin ophen 325 mg tablet TAKE 1 TABLET BY MOUTH EVERY 4 TO 6 HOURS NEEDED FOR PAIN 07/23 completed Not Available Not Available Not Available meloxicam 15 mg tablet TAKE 1 TABLET BY MOUTH DAILY WITH FOOD NEEDED 07/23 completed Not Available Not Available Not Available prednisone 20 mg tablet TAKE 2 TABLETS BY MOUTH EVERY DAY 07/23 completed Not Available Not Available Not Available tramadol 50 mg tablet TAKE 1 TABLET BY MOUTH EVERY 6 TO 8 HOURS NEEDED FOR PAIN 07/23 completed Not Available Not Available Not Available Zoloft 50 mg tablet Take 1 tablet every day by oral route. 07/23 completed Not Available Not Available Not Available cephalexin 500 mg capsule TAKE 1 CAPSULE BY MOUTH FOUR TIMES DAILY 07/23 completed Not Available Not Available Not Available fluticasone propionate 50 mcg/actuati on nasal spray,suspe nsion SHAKE LIQUID AND USE 1 SPRAY IN EACH NOSTRIL TWICE DAILY 07/23 completed Not Available Not Available Not Available amoxicillin 875 mg-potassiu m clavulanate 125 mg tablet TAKE 1 TABLET BY MOUTH EVERY 12 HOURS 07/23 completed Not Available Not Available Not Available ID NOW COVID-19 Test Kit TEST DIRECTED TODAY 07/23 completed Not Available Not Available Not Available Vitals Date Recorded Body mass index (BMI) Body height Heart rate Body temperature Body weight Systolic blood pressure Diastolic blood pressure Provider Name and Address Organization Details Last Updated DateTime 3 37 kg/m2 160.02 cm 78 /min 98.8 [degF] 79172.8 1 g 112 mm[Hg] 70 mm[Hg] Not Available [facility] 3 01:48:38 Date Recorded Body mass index (BMI) Body height Heart rate Body temperature Body weight Systolic blood pressure Diastolic blood pressure Provider Name and Address Organization Details Last Updated DateTime 3 37 kg/m2 160.02 cm 77 /min 98.7 [degF] 98282.8 1 g 128 mm[Hg] 84 mm[Hg] Not Available [facility] 3 01:48:38 Date Recorded Body height Body mass index (BMI) Body weight Body temperature Heart rate Systolic blood pressure Diastolic blood pressure Provider Name and Address Organization Details Last Updated DateTime 3 160.02 cm 36.1 kg/m2 78815.8 4 g 98.6 [degF] 82 /min 118 mm[Hg] 74 mm[Hg] Duyen christensen RN [facility] [employer] [facility] 3 11:40:16 Date Recorded Body height Body mass index (BMI) Body weight Body temperature Heart rate Systolic blood pressure Diastolic blood pressure Provider Name and Address Organization Details Last Updated DateTime 3 160.02 cm 33.8 kg/m2 07440.1 4 g 98.7 [degF] 67 /min 132 mm[Hg] 76 mm[Hg] Duyen christensen RN [facility] [employer] [facility] 3 11:47:20 Date Recorded Body height Body mass index (BMI) Body weight Body temperature Heart rate Systolic blood pressure Diastolic blood pressure Provider Name and Address Organization Details Last Updated DateTime 3 160.02 cm 30.8 kg/m2 10667.0 7 g 97.7 [degF] 73 /min 112 mm[Hg] 72 mm[Hg] GIOVANNA Barnes [facility] [employer] [facility] 3 11:02:01 Social History Question Answer Notes LastModified by Swopboard[employer]at ion Details LastModified Time Tobacco Smoking Status Former Smoker Not Available [facility] 07/10/2022 01:48:14 Do You Have An Advance Directive? No MIGRATION.01065 01389 Information not available 07/10/2022 What Is Your Level Of Alcohol Consumption? Occasional MIGRATION.68524 37496 Information not available 07/10/2022 What Is Your Level Of Caffeine Consumption? Moderate MIGRATION.40189 63156 Information not available 07/10/2022 In The 14 Days Before Symptom Onset, Have You Had Close Contact With A Laboratory-confi rmed COVID-19 While That Case Was Ill? No MIGRATION.73327 27795 Information not available 07/10/2022 In The 14 Days Before Symptom Onset, Have You Had Close Contact With A Person Who Is Under Investigation For COVID-19 While That Person Was Ill? No MIGRATION.64277 30316 Information not available 07/10/2022 What Type Of Diet Are You Following? REGULAR MIGRATION.47963 36623 Information not available 07/10/2022 Do You Or Have You Ever Used E-cigarettes Or Vape? Current User Of Electronic Cigarettes MIGRATION.71075 18516 Information not available 07/10/2022 What Is The Highest Grade Or Level Of School You Have Completed Or The Highest Degree You Have Received? [id number] MIGRATION.75413 22414 Information not available 07/10/2022 What Is Your Occupation? [employer] MIGRATION.67855 46638 Information not available 07/10/2022 Have There Been Any Changes To Your Family Or Social Situation? No MIGRATION.03482 47649 Information not available 07/10/2022 What Is The Fluoride Status Of Your Home? Fluoridated MIGRATION.40739 14454 Information not available 07/10/2022 When Did You Quit Smoking? 1-5yearssincelastci garette MIGRATION.75727 80325 Information not available 07/10/2022 Are There Any Guns Present In Your Home? Yes MIGRATION.88048 71060 Information not available 07/10/2022 Do You Use Insect Repellent Routinely? No MIGRATION.63450 22767 Information not available 07/10/2022 [facility] MIGR[facility].73979 41166 Information not available 07/10/2022 Do You Have A Medical Power Of Orchestra Musician? No MIGRATION.57035 20387 Information not available 07/10/2022 What Was The Date Of Your Most Recent Tobacco Screening? 12/03/2022 [email or web address] Information not available 12/03/2022 Do You Have Any Pets? Yes MIGRATION.09258 44902 Information not available 07/10/2022 What Is Your Relationship Status? MIGRATION.25792 58179 Information not available 07/10/2022 Do You Have Smoke And Carbon Monoxide Detectors In Your Home? Yes MIGRATION.93718 56179 Information not available 07/10/2022 Are You Passively Exposed To Smoke? Yes MIGRATION.66343 04721 Information not available 07/10/2022 Are There Any Smokers In Your House? Yes MIGRATION.49941 54989 Information not available 07/10/2022 Do You Feel Stressed (tense, Restless, Nervous, Or Anxious, Or Unable To Sleep At Night)? [id number] MIGRATION.51426 45568 Information not available 07/10/2022 Do You Use Any Illicit Or Recreational Drugs? No MIGRATION.34480 07466 Information not available 07/10/2022 Do You Use Sunscreen Routinely? No MIGRATION.91341 52341 Information not available 07/10/2022 Have You Recently Traveled Abroad? No MIGRATION.96317 87831 Information not available 07/10/2022 Do You Have Any Dietary Restrictions? No MIGRATION.81675 20691 Information not available 07/10/2022 Do You Or Have You Ever Used Any Other Forms Of Tobacco Or Nicotine? Yes MIGRATION.58008 12674 Information not available 07/10/2022 How Many Years Have You Used E-cigarettes Or Vape? 3 MIGRATION.80353 15069 Information not available 07/10/2022 Sex: Unknown Functional Status Question Answer Note LastModified by Organizat ion Details LastModified Time What is your exercise level? Heavy MIGRATION.[id number] Information not available 07/10/2022 Mental Status None recorded. Family History Relationship Description Onset Age of this Age Resolved Age Notes LastModified by Organization Details LastModified Time Father Hypertensive disorder MIGRATION.774 [id number] Not available 07/10/2022 01:48:27 Father Family history of malignant neoplasm MIGRATION.357 [id number] Not available 07/10/2022 01:48:27 Mother Hypertensive disorder MIGRATION.172 [id number] Not available 07/10/2022 01:48:27 Mother Heart disease MIGRATION.003 7646110 Not available 07/10/2022 01:48:27 Mother Family history of malignant neoplasm thyroi d MIGRATION.247 [id number] Not available 07/10/2022 01:48:27 Paternal Grandmother Heart disease MIGRATION.717 2077217 Not available 07/10/2022 01:48:27 Notes:pacemaker - daughter Medical History Condition Response HEART DISEASE/HEART PROBLEMS Y ANXIETY DISORDER Y BACK / NECK PROBLEMS Y HAVE YOU BEEN HOSPITALIZED OR SEEN IN [facility] IN THE PAST YEAR ? N HEARTBURN / REFLUX Y HIGH CHOLESTEROL / HYPERLIPIDEMIA Y Gynecological HistoryNo gynecological history recorded. Obstetrics History GPAL:G 0 P 0 0 0 0 Immunizations Vaccine Type Date Status Note Provider Nam e and Address Organization Details Recorded Time Influenza, split virus, quadrivalent, PF 07/23/2022 completed Beau Westbrook MD [address] [facility], [address], [place], [address], [facility] [employer] [facility] 08/03/2022 13:49:16 Past Encounters Encounter ID Performer Location Encounter Start Date Encounter Closed Date Diagnosis/Indication Diagnosis SNOMED-CT Code Diagnosis ICD10 Code Diagnosis Note [id number] [facility] Internal Med [address] [place] [address] 06/11/2022 00:00:00 06/11/2022 23:32:59 [id number] [facility] [address] [place] [address] [address] [address] 07/02/2022 00:00:00 07/03/2022 09:37:16 [id number] Beau Westbrook MD [facility] Internal Med [facility] [address] [address] 07/23/2022 11:03:08 07/23/2022 12:32:47 Administration of influenza vaccine [id number] Z23 [id number] Beau Westbrook MD [facility] [address] [address] 09/03/2022 11:07:57 09/03/2022 12:10:15 Cervical radiculopathy 31635417 M54.12 Cervical d isc disorder 543966542 M50.11 Dizziness 422260704 R42 [id number] Beau Westbrook MD [facility] [address] [address] 12/03/2022 10:48:00 12/03/2022 11:19:43 Memory impairment 236124551 R41.3 Cervical radiculopathy 72829070 M54.12 Health Concerns Section Related Observation LastModified by Organization Detai ls LastModified Time None Recorded Concern Status LastModified by Organization Details LastModified Time None Recorded Advance Directives Directive N: Payers Encounter Date Sequence Insurance Name Policy Number Policy Greene Covered Member ID Greene Member ID Guarantor Name 07/23/2022 1 [place] [id number] Whitley Bermudez [id number] Whitley Bermudez 09/03/2022 1 [place] [id number] Whitley Bermudez [id number] Whitley Bermudez 12/03/2022 1 [place] [id number] Whitley Bermudez [id number] Whitley Bermudez Notes Date Note Type Note Provider Name and Address Organization Details Recorded Time 07/23/2022 text/html No headache and no dizziness she will be following up with the specialist [place] made her tired Beau Westbrook MD [address], [place], [address], [facility] [employer] [facility] 08/03/2022 13:49:19 09/03/2022 text/html Saw the neurosurgeon no surgery recommended physical therapy and possible injections nothing on Holter monitor Beau Westbrook MD [address], [place], [address], [employer] [facility] 09/14/2022 14:18:45 12/03/2022 text/html Trigger point injections for neck maybe a little bit better. She has some problems with memory loss she says. Says she is completely stop alcohol. Beau Westbrook MD [address], [place], [address], [employer] [facility] 12/04/2022 08:27:58 OBGyn Episode No OBEpisode recorded.
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
--- OUTSIDE RECORDS SUMMARY | 2024-07-02 10:07 | XMS_ITS | Continuity of Care Document ---
Author Organization [facility] Address [address] [place] [address] Phone Care Team Providers Care Rolling Machine Operator Automatic Name Role Phone Unavailable Unavailable Unavailable Allergies, Adverse Reactions, Alerts Substance Reaction Status Criticality No Known Allergies Active No Inform ation Medications Medication Instructions Dosage Effective Dates (start - stop) Status Comments fluticasone propionate 50 mcg/actuation nasal spray,suspension spray 1 spray by intranasal route 2 times every day in each nostril - Active simvastatin 20 mg tablet take 1 tablet by oral route every day in the evening 20 MG - Active methadone 10 mg tablet take 5.5 tablet by oral route every 8 hours 55 MG - Active Procedures Procedure Date Voided Encounter OFFICE/OUTPATIENT VISIT, EST OFFICE/OUTPATIENT VISIT, EST 1ST COMPRE PREV MED E/M NEW PT 18-39 May HEMOGLOBIN; GLYCOSYLATED (A1C) OFFICE/OUTPATIENT VISIT, NEW Advance Directives Directive Yes / No Effective Date File Name No Information Encounters Encounter Description Practice Location Reason(s) For Visit Diagnoses Date Provider Providers Copied on Encounter [facility], [address], [place], [place], [address] , [place] tel:[phone] [facility] No Information No Information OFFICE/OUTPA TIENT VISIT, EST [facility], [address], [place], [place], [address] , [place] tel:[phone] [facility] telehealth (chief complaint) Acute sinusitisNasal congestion Apr-2 7-202 2 No Information OFFICE/OUTPA TIENT VISIT, EST [facility], [address], [place], [place], [id number] , [place] tel: [phone] [facility] Test results (chief complaint) Carpal tunnel syndrome of bilateral armsFatigueShortn ess of breathChronic viral hepatitis CNasal congestionHyperli pidemia, unspecified 1 No Information 1ST COMPRE PREV MED E/M NEW PT 18-39 [facility], [address], [place], [place], [address] , [place] tel: [phone] [facility] Medical exam (chief complaint) Chronic viral hepatitis CEncounter for general adult medical exam w abnormal findingsCarpal tunnel syndrome, bilateral upper limbsShortness of breathFatigue 1 No Information OFFICE/OUTPA TIENT VISIT, NEW [facility], [address], [place], [place], [address] , [place] tel: [phone] [facility] new patient telehealth (chief complaint) Generalized Anxiety DisorderChronic viral hepatitis CFemale climacteric state 0 No Information As per patient privacy policy some of the clinical information may not be visible. Family History Family Member Type Diagnosis Age At Onset Father Problem Diabetes mellitus Mother Problem Thyroid disorder Sister Problem Cardiovascular disease Payers Payer name Insurance type Covered democrat ID Authoriza tion(s) No Information Social History Type Description Quantity Date Captured Comments Sex Female Smoking Status No Information Sexual Orientation Straight or heterosexual May Gender Identity Female Chief Complaint And Reason For Visit No Information Reason For Referral Reason For Referral No Information History Of Present Illness Encounter Date Complaint History Of Prese nt Illness telehealth Patient is a 40 year old female who presents for telehealth appointment. Reports she has felt like she has been sick for the last couple months since the end of May. Has a lot of congestion, ear pain, feeling pressure and fluid in her ears/head. has some muffled hearing, but only when I'm sick. +sinus pain.+dizziness, but only on and off.Thought it was allergies, doesn't have a history of allergies.Did try OTC medications- tried an off brand allergy pill. Has tried sudafed the last few days, but hasn't really been working either.+cough no sore throat. +body aches, fatigue.Did get covid test done about 2 days ago, hasn't gotten the results yet.Pt says that she recently got retested for Hep C and is now positive. Is wondering what she needs to do for treatment. Test results Patient is a 39 year old female who presents for test results/follow up. Patient initially seen by KORI Peguero. Hep C- cleared up.Labs- shows some hyperlipidemia. discussed diet and lifestyle changes.Carpal tunnel- not helping with braces, only wearing them at nighttime. pt says her insurance will kick in in about 30 days. Will want referral to hand surgery once that occurs. Discussed wearing braces during the daytime as well. Congestion x a few weeks. Thought it was allergies, hasn't tried taking anything for it. no cough, fever, chest pain, nausea, vomiting, headache, sore throat.Still ongoing fatigue and sob with exertion. Medical exam Patient is a 39 year old female who presents for medical exam.Pt has a couple things she would like to discuss today. bilateral hand numbness x 2 years. Pt reports it is throughout the day and will wake up in the night and shake her hands awake. Does help. Whole hand goes numb.no weakness with investigation division captain strength.no wrist pain.Pt is R handed. not worse in any hand. Has not tried any wrist braces or anything. 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 Hx of Hep C- interested in treatment.Told that she had it back at [facility] about 4-5 years ago when she had her cholecystectomy.no abdominal pain/nausea/vomiting.not currently having any insurance as she is on her 90 day probation at work.Anxiety/depression- feels like it is sometimes controlled." CHRISSIE 7 with score of 5 day, mild anxietyPHQ 9 with score of 8 today, mild depressionno SI or HI.SOB- with exertion, mainly with walking up stairs. Worse when feeling anxious and talking about things that are anxiety provoking. no chest pain.No edema recently, only has had one episode of that.Reports a lot of fatigue. 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 One used meth and fentanyl and the other used fentanyl.Did inject when she was using. Pt wondering about getting her heart looked at. Pt reports having edema about 2.5 years ago. Hasn't had it since then. No chest pain.+sob with exertion.Pt reports having a lot of weight gain after she stopped using, but has lost about 20-30# since she started working every day. no fatigue. Pt does have Hep C, interested in treatment. No other PMHx such as HTN, depression.pt believes she may have anxiety. Tends to worry a lot about things that she doesn't have any control over. Hx of anxiety treatment in the past. Hx of suicide attempt as well before her drug addiction when her father . Treated for depression at that time, but hasn't been treated since. Last pap- has been over 5 years ago. no hx abnormal pap. pt wondering about getting hormone replacement therapy, notes a lot of hot flashes. Hx of partial hysterectomy. Functional Status Date Functional Assessmen t No Information Instructions Date Instruction Additional Infor meng Augmentin rx with pr ednisonemay be some eustachian tube dysfunction.Nasal spray as well.Follow up to discuss Hepatitis C testing you recently had done Related to Acute sinusitis Call when your insur aidan kicks in and will refer for echo! Related to Shortness of breath Flonase rx Related to Nasal congestion Start statinRecheck cholesterol in about 3-6 months Related to Hyperlipidemia, unspecified Cleared, yay!! Related to Chron ic viral hepatitis C Call when your insur aidan kicks in and we can refer you to see hand surgery Related to Carpal tunnel syndrome of bilateral arms Labs today Related to Fatig ue Sister passed from c ardiomyopathy from OD Consider echo when pt gets insurance Related to Shortness of breath Use wrist braces at nighttime, can start to use during the day if you're having a lot of problemsConsider referral to hand surgery if it doesn't work Related to Carpal tunnel syndrome, bilateral upper limbs Updated labs todayFo llow up with me in 1 month to discuss Related to Chronic viral hepatitis C pt to get follow up with obgyn for annual exam. Related to Female climacteric state Will get labs and in itiate hep c treatment when she comes in person Related to Chronic viral hepatitis C Will discuss further at follow up. Consider doing CHRISSIE 7 Related to Generalized Anxiety Disorder As per patient privacy policy some of the clinical information may not be visible. Assessments Type Assessment Date No Information Patient Care Teams Name Effective Dates (start - stop) Status Members No Information
--- OUTSIDE RECORDS SUMMARY | 2024-07-02 10:07 | XMS_ITS | Clinical Summary ---
Author Organization [facility] Address [address] [place] [address] Care Team Providers Care Ice Cream Man Name Role Phone Beau Westbrook MD Primary Care Provider [phone] Beau Westbrook MD Unavailable [phone] Medications tiZANidine (ZANAFLEX) 4 MG tablet Take 1 tablet (4 mg total) by mouth nightly at bedtime. 08/20/2022 Active Social History Tobacco Use Types Packs/Day Years Used Date Smoking Tobacco: Unknown Smokeless Tobacco: Current Tobacco Cessation:Ready to Q uit: No; Counseling Given: Not Answered Comments:PT VAPES DAILY Alcohol Use Standard Drinks/Week Comments Not Currently 0 (1 standard drink = 0.6 oz pur e alcohol) Comments No Sex and Gender Information Value Date Recorded Sex Assigned at Not on file Legal Sex Female 4:29 PM CDT Gender Identity Not on file Sexual Orientation Not on file Occupation Industry Job Start Date Job End Date WORKS AT [employer] Not on file Not on file Not on file Last Filed Vital Signs Vital Sign Reading Time Taken Comments Blood Pressure 122/76 09/10/2022 1:14 PM CDT Pulse 66 09/10/2022 1:14 PM CDT Temperature 36.4 C (97.5 F) 09/10/2022 12:50 PM CDT Respiratory Rate 20 09/10/2022 1:14 PM CDT Oxygen Saturation 97% 09/10/2022 1:14 PM CDT Inhaled Oxygen Concentration - - Weight - - Height - - Body Mass Index - - Plan of Treatment Health Maintenance Due Date Last Done Comments Cervical Cancer Screening Pa p Smear (Age 30 to 64) Every 3 Years 1981 Annual Physical 1984 PHQ-2 (Physician Sun'Aq) 1993 Hepatitis C 11/13/1999 DTaP, Tdap and Td Vaccines ( 1 - Tdap) 2000 Hepatitis B Vaccines (1 of 3 - 19+ 3-dose series) 2000 Cervical Cancer Screening Pa p with HPV Testing (Age 30 to 64) Every 5 Years 11/13/2011 Cervical Cancer Screening with HPV 11/13/2011 Mammogram Screening 2021 COVID-19 Vaccine (1 - 2023-2 5 season) 2024 Influenza Adult (#1) 2024 07/23/2022 PHQ-2 (Physician Sun'Aq) 05/11/2024 HPV Vaccines Aged Out No longer eligi ble based on patient's age to complete this topic Meningococcal B Vaccine Aged Out No l onger eligible based on patient's age to complete this topic Meningococcal Vaccine Aged Out No davis ritesh eligible based on patient's age to complete this topic Pneumococcal Vaccine: Pediat rics (0 to 5 Years) and At-Risk Patients (6 to 64 Years) Aged Out No longer eligi ble based on patient's age to complete this topic RSV Immunizations Under 20 Months Aged Out No longer eligible based on patient's age to complete this topic Insurance [facility] Care Teams Ice Cream Man Relationship Specialty Start Date End Date Beau Westbrook MD [address] [facility] [address] [place] [address] PCP - General INTERNAL MEDICINE 12/08/22 Beau Westbrook MD [address] [phone] INTERNAL MEDICINE 12/08/22
--- OUTSIDE RECORDS SUMMARY | 2024-07-02 10:07 | XMS_ITS | Continuity of Care Document ---
Author Organization [facility] Address [address] [place] [address] [address] [place] [address] Phone Care Team Providers Care Nutrition Faculty Member Name Role Phone Sudha Guerra Unavailable Unavailable Procedures Procedure Date Eye Exam, New Patient Advance Directives Directive Yes / No Effective Date File Name No Information Encounters Encounter Description Practice Location Reason(s) For Visit Diagnoses Date Provider Providers Copied on Encounter [facility], [id number], [place], [place], [id number], [place] tel:[phone] [facility] No Information [address]. [address] , [address], [place], [address], [place]. tel:[phone] Family History Family Member Type Diagnosis Age At Onset No Information Payers Payer name Insurance type Covered republican ID Authoriza tion(s) Medicaid [facility] [id number] Social History Type Description Quantity Date Captured Comments Sex Female Smoking Status No Information Chief Complaint And Reason For Visit No Information Reason For Referral Reason For Referral No Information History Of Present Illness Encounter Date Complaint History Of Prese nt Illness No Information Functional Status Date Functional Assessmen t No Information Instructions Date Instruction Additional Infor mation No Information Assessments Type Assessment Date No Information Patient Care Teams Name Effective Dates (start - stop) Status Members No Information
--- OUTSIDE RECORDS SUMMARY | 2024-07-02 10:07 | XMS_ITS | Continuity of Care Document ---
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 Name Role Phone Sonu Myers Unavailable Unavailable Procedures Procedure Date Therapeutic Activities Neuromuscular Re-Ed Therapeutic Exercise Hot or Cold Pack Manual Therapy Progress Note Therapeutic Activities Neuromuscular Re-Ed Therapeutic Exercise Manual Therapy Therapeutic Activities Neuromuscular Re-Ed Therapeutic Exercise Manual Therapy Hot or Cold Pack Therapeutic Activities Neuromuscular Re-Ed Therapeutic Exercise Manual Therapy Hot or Cold Pack Therapeutic Activities Neuromuscular Re-Ed Therapeutic Exercise Manual Therapy Hot or Cold Pack PT Evaluation Moderate Complexity Neuromuscular Re-Ed Therapeutic Exercise Manual Therapy Therapeutic Activities Neuromuscular Re-Ed Therapeutic Exercise Manual Therapy Hot or Cold Pack Therapeutic Activities Neuromuscular Re-Ed Therapeutic Exercise Progress Note Therapeutic Activities Neuromuscular Re-Ed Therapeutic Exercise Hot or Cold Pack Therapeutic Activities Neuromuscular Re-Ed Therapeutic Exercise Hot or Cold Pack Therapeutic Activities Neuromuscular Re-Ed Therapeutic Exercise Manual Therapy Hot or Cold Pack PT Evaluation Moderate Complexity Neuromuscular Re-Ed Therapeutic Exercise Manual Therapy Progress Note Therapeutic Activities Neuromuscular Re-Ed Therapeutic Exercise Therapeutic Activities Neuromuscular Re-Ed Therapeutic Exercise Therapeutic Activities Therapeutic Exercise Neuromuscular Re-Ed Therapeutic Activities Neuromuscular Re-Ed Therapeutic Exercise PT Evaluation Low Complexity Therapeutic Activities Neuromuscular Re-Ed PT Re-evaluation Neuromuscular Re-Ed Therapeutic Activities Therapeutic Exercise Manual Therapy Therapeutic Activities Neuromuscular Re-Ed Therapeutic Exercise Manual Therapy Therapeutic Activities Neuromuscular Re-Ed Therapeutic Exercise Therapeutic Activities Neuromuscular Re-Ed Therapeutic Exercise Manual Therapy Hot or Cold Pack Therapeutic Activities Neuromuscular Re-Ed Therapeutic Exercise Manual Therapy Hot or Cold Pack Therapeutic Activities Neuromuscular Re-Ed Therapeutic Exercise Manual Therapy Hot or Cold Pack Therapeutic Activities Neuromuscular Re-Ed Therapeutic Exercise Manual Therapy Hot or Cold Pack PT Evaluation Moderate Complexity Therapeutic Activities Therapeutic Exercise Work Conditioning Initial 2 hrs 023 Work Conditioning add 1 hr Work Conditioning Initial 2 hrs 023 Work Conditioning add 1 hr WORK COND/WORK HARD RE EVAL Work Conditioning Initial 2 hrs 023 Work Conditioning add 1 hr Work Conditioning Initial 2 hrs 023 Work Conditioning add 1 hr Work Conditioning Initial 2 hrs 023 Work Conditioning add 1 hr Work Conditioning Initial 2 hrs 023 Work Conditioning add 1 hr Work Conditioning Initial 2 hrs 023 Work Conditioning add 1 hr Work Conditioning Initial 2 hrs 023 Work Conditioning add 1 hr Work Conditioning Initial 2 hrs 023 Work Conditioning add 1 hr Work Conditioning Initial 2 hrs 023 Work Conditioning add 1 hr Work Conditioning Initial 2 hrs 022 Work Conditioning add 1 hr Work Conditioning Initial 2 hrs 022 Work Conditioning add 1 hr WORK COND/WORK HARD RE EVAL Work Conditioning Initial 2 hrs 022 Work Conditioning add 1 hr Work Conditioning Initial 2 hrs - 022 Work Conditioning add 1 hr Work Conditioning Initial 2 hrs - 022 Work Conditioning add 1 hr Work Conditioning Initial 2 hrs - 022 Work Conditioning add 1 hr Work Conditioning Initial 2 hrs -2 022 Work Conditioning add 1 hr Work Conditioning Initial 2 hrs - 022 Work Conditioning add 1 hr Work Conditioning Initial 2 hrs - 022 Work Conditioning add 1 hr Work Conditioning Initial 2 hrs - 022 Work Conditioning add 1 hr Work Conditioning Initial 2 hrs - 022 Work Conditioning add 1 hr Work Conditioning Initial 2 hrs - 022 Work Conditioning add 1 hr Work Conditioning Initial 2 hrs - 022 Work Conditioning add 1 hr Work Conditioning Initial 2 hrs - 022 Work Conditioning add 1 hr WORK COND/WORK HARD RE EVAL Work Conditioning Initial 2 hrs - 022 Work Conditioning add 1 hr Work Conditioning Initial 2 hrs - 022 Work Conditioning add 1 hr Work Conditioning Initial 2 hrs - 022 Work Conditioning add 1 hr Work Conditioning Initial 2 hrs - 022 Work Conditioning add 1 hr Work Conditioning Initial 2 hrs - 022 Work Conditioning add 1 hr Work Conditioning Initial 2 hrs - 022 Work Conditioning add 1 hr Work Cond Initial Report Work Conditioning Initial 2 hrs - 022 Work Conditioning add 1 hr Therapeutic Exercise Hot or Cold Pack Electrical Stimulation Neuromuscular Re-Ed Therapeutic Activities Functional Testing - Other Therapeutic Exercise Therapeutic Activities Hot or Cold Pack Electrical Stimulation Neuromuscular Re-Ed Therapeutic Exercise Therapeutic Activities Hot or Cold Pack Electrical Stimulation Neuromuscular Re-Ed Therapeutic Exercise Neuromuscular Re-Ed Therapeutic Activities Hot or Cold Pack Electrical Stimulation Therapeutic Exercise Therapeutic Activities Hot or Cold Pack Electrical Stimulation Neuromuscular Re-Ed Therapeutic Exercise Therapeutic Activities Hot or Cold Pack Electrical Stimulation Neuromuscular Re-Ed Therapeutic Exercise Electrical Stimulation Therapeutic Activities Functional Testing - Other Neuromuscular Re-Ed Therapeutic Exercise Therapeutic Activities Hot or Cold Pack Electrical Stimulation Neuromuscular Re-Ed Therapeutic Exercise Therapeutic Activities Neuromuscular Re-Ed Therapeutic Activities Therapeutic Exercise Functional Testing - Other Therapeutic Exercise Therapeutic Activities Hot or Cold Pack Electrical Stimulation Neuromuscular Re-Ed Therapeutic Exercise Therapeutic Activities Neuromuscular Re-Ed Therapeutic Exercise Therapeutic Activities Hot or Cold Pack Electrical Stimulation Neuromuscular Re-Ed Therapeutic Exercise Therapeutic Activities Hot or Cold Pack Electrical Stimulation Neuromuscular Re-Ed Therapeutic Exercise Therapeutic Activities Hot or Cold Pack Electrical Stimulation Neuromuscular Re-Ed Therapeutic Exercise Hot or Cold Pack Electrical Stimulation Neuromuscular Re-Ed Therapeutic Activities Therapeutic Exercise Therapeutic Activities Neuromuscular Re-Ed Therapeutic Exercise Hot or Cold Pack Neuromuscular Re-Ed Manual Therapy Therapeutic Activities Therapeutic Exercise Neuromuscular Re-Ed Manual Therapy Therapeutic Activities PT Evaluation Low Complexity Therapeutic Activities Therapeutic Exercise Neuromuscular Re-Ed Manual Therapy Therapeutic Activities Therapeutic Exercise Therapeutic Activities Neuromuscular Re-Ed Therapeutic Exercise Therapeutic Activities Neuromuscular Re-Ed Therapeutic Exercise Neuromuscular Re-Ed Therapeutic Activities Therapeutic Exercise Hot or Cold Pack Neuromuscular Re-Ed Manual Therapy Therapeutic Activities Therapeutic Exercise Hot or Cold Pack Neuromuscular Re-Ed Manual Therapy Therapeutic Activities Therapeutic Exercise Therapeutic Activities Neuromuscular Re-Ed Therapeutic Exercise Therapeutic Activities Neuromuscular Re-Ed Therapeutic Exercise Neuromuscular Re-Ed Therapeutic Activities Therapeutic Exercise Therapeutic Activities Neuromuscular Re-Ed Therapeutic Exercise Neuromuscular Re-Ed Therapeutic Activities Neuromuscular Re-Ed Therapeutic Activities Therapeutic Exercise Neuromuscular Re-Ed Therapeutic Activities Therapeutic Exercise Neuromuscular Re-Ed Therapeutic Activities Therapeutic Exercise Hot or Cold Pack Neuromuscular Re-Ed Therapeutic Activities Therapeutic Exercise Hot or Cold Pack Neuromuscular Re-Ed Manual Therapy Therapeutic Activities Therapeutic Exercise Therapeutic Activities Neuromuscular Re-Ed Therapeutic Exercise Therapeutic Activities Neuromuscular Re-Ed Therapeutic Exercise Neuromuscular Re-Ed Therapeutic Activities Therapeutic Exercise Neuromuscular Re-Ed Therapeutic Activities Therapeutic Exercise Therapeutic Activities Therapeutic Exercise PT Evaluation Low Complexity Advance Directives Directive Yes / No Effective Date File Name No Information Encounters Encounter Description Practice Location Reason(s) For Visit Diagnoses Date Provider Providers Copied on Encounter [facility] [place] [address], [id number], tel:[phone] [place] No Information 5 Camila Ascencio. [address] [facility], [address], [facility], [place]. tel:[phone] [facility] [place] [facility] [address], [place], [id number], tel:[phone] [place] No Information 4 Camila Ascencio. [address] [facility], [address], [place], [facility], [place]. tel:[phone] Referring Provider: Beau Maloney, [address] [facility] [address], [place], [address]. tel:[phone] [facility], [id number], [place] tel:[phone] [place] No Information 4 Muehl Sonu. [address] [place] [address], [address], [place], [address], [place]. tel:[phone] Referring Provider: Beau Maloney, [address], [place], [address]. tel:[phone] [place] [address] [place] [address], [place], [place], [id number], [place] tel:[phone] [place] No Information 4 Muehl Sonu. [address] [place] [address], [address], [place], [address], [place]. tel:[phone] Referring Provider: Beau Maloney, [address], [place], [address]. tel:[phone] [place], [place] [address], [place], [id number], [place] tel:[phone] [place] No Information 4 Muehl Sonu. [address] [place] [address], [address], [place], [address], [place]. tel:[phone] Referring Provider: Beau Maloney, [address], [place], [address]. tel:[phone] [place] [address] [address], [id number], [place] tel:[phone] [place] No Information 4 Muehl Sonu. [address] [place] [address], [address], [place], [address], [place]. tel:[phone] Referring Provider: Beau Maloney, [address], [place], [address]. tel:[phone] [place] [address] [address] [place] [address], [place], [place], [id number], [place] tel:[phone] [place] No Information 4 Muehl Sonu. [address] [place] [address], [address], [place], [facility], . tel:[phone] Referring Provider: [address], [place], [address]. tel:[phone] [address], [place], [place], [id number], tel:[phone] [place] No Information Aug-2 4- 4 Muehl Sonu. [address] [place] [address], [address], [place], [facility], . tel:[phone] Referring Provider: [address], [place], [address]. tel:[phone] [place], [place] [address]uite [facility], [place], [place], [id number], tel:[phone] [place] No Information Aug-2 2- 4 Muehl Sonu. [address] [place] [address], [address], [place], [facility], . tel:[phone] Referring Provider: [address], [place], [address]. tel:[phone] [address] [facility], [place], [place], [id number], tel:[phone] [place] No Information Aug-1 4 Muehl Sonu. [address] [place] [address], [address], [place], [facility], . tel:[phone] Referring Provider: [address], [place], [address]. tel:[phone] [address], [place], [place], [id number], [place] tel:[phone] [place] No Information Aug-1 0-202 4 Muehl Sonu. [address] [place] [address], [address], [place], [facility], . tel:[phone] Referring Provider: [address], [place], [address]. tel:[phone] [address], [place], [place], [id number], tel:[phone] [place] No Information 0 4 Muehl Sonu. [address] [facility], [address], [place], [facility], . tel:[phone] Referring Provider: Beau Westbrook, [address], [place], [address]. tel:[phone], [id number], tel:[phone] [place] No Information Jul-2 4 Muehl Sonu. [address] [place] [address], [address], [place], [facility], . tel:[phone] Referring Provider: Beau Westbrook, [address], [place], [address]. tel:[phone], [id number], tel:[phone] [place] No Information 3 Dellamano Agapito. . Referring Provider: Jocelin Eagle[address], [place], [address]. tel:[phone] [facility], [place], [id number], tel:[phone] [place] No Information 3 Muehl Sonu. [address] [place] [address], [address], [place], [facility], . tel:[phone] Referring Provider: Jocelin Eagle[address], [place], [address]. tel:[phone], [id number], tel:[phone] [place] No Information 0 3 Modglin Chadd. . Referring Provider: Yoly [address], [place], [address]. tel:[phone] [facility], [address] [facility] [facility], [place], [id number], [place] tel:[phone] [place] No Information Nov-0 6-202 3 Modglin Chadd. . Referring Provider: Dawosn Moses, [address], [place], [address]. tel:[phone] [facility] [address] [facility], [place], [place], [id number], [place] tel:[phone] [place] No Information Nov-0 3-202 3 Dellamano Agapito. . Referring Provider: Dawson Moses [address], [place], [address]. tel:[phone] [facility], [address] [facility] [address], [place], [place], [address], [place] tel:[phone] [place] No Information September- 8- 3 Taccola Luke. . Referring Provider: Mikaela [address]ano [address], [place], [address]. tel:[phone] [facility] [address] [place], [place] [address]e [facility], [place], [place], [id number], [place] tel:[phone] [place] No Information September-1 5- 3 Hood Zaria. . Referring Provider: Mikaela [address]ano [address], [place], [address]. tel:[phone] [facility] [address] [place] [address], [place], [place], [id number], [place] tel:[phone] [place] No Information May-1 0-202 3 Taccola Luke. . Referring Provider: Mikaela [address]ano [address], [place], [address]. tel:[phone] [facility], [address] [place] [address], [place], [address], [place] tel:[phone] [place] No Information May-0 3-202 3 Taccola Luke. . Referring Provider: Mikaela [address]ano [address], [place], [address]. tel:[phone] [facility] [address] [place] [address], [place], [place], [address], [place] tel:[phone] [place] No Information Aug- 4-202 3 Hood Zaria. . Referring Provider: Mikaela Majano [address], [place], [address]. tel:[phone] [facility], [address] [place] [address], [place], [place], [address], [place] tel:[phone] [place] No Information 3 Taccola Luke. . Referring Provider: Mikaela Majano [address], [place], [address]. tel:[phone] [facility] [address] [place] [address], [place], [place], [id number], [place] tel:[phone] [place] No Information 3-202 3 Taccola Luke. . Referring Provider: Mikaela Majano [address], [place], [address]. tel:[phone] [facility], [address] [place] [address], [place], [place], [address], [place] tel:[phone] [place] No Information 2 3 Taccola Luke. . Referring Provider: Mikaela Majano [address], [place], [address]. tel:[phone] [facility] [place] [address], [place], [place], [id number], [place] tel:[phone] [place] No Information 6- 3 Taccola Luke. . Referring Provider: Dawson Moses, [address], [place], [address]. tel:[phone] [facility] [place] [address], [place], [place], [address], [place] tel:[phone] [place] No Information -202 3 Taccola Luke. . Referring Provider: Dawson Moses [address], [place], [address]. tel:[phone] [facility], [address] [place] [address], [place], [place], [id number], [place] tel:[phone] [place] No Information 2- 3 Abraham Kalyani. . Referring Provider: Yoly [address], [place], [address]. tel:[phone] [facility], [address] [place] [address] [address], [place], [place], [id number], tel:[phone] [place] No Information - 3 Taccola Luke. . Referring Provider: Yoly [address], [place], [address]. tel:[phone] [facility], [address] [place] [address], [place], [place], [id number], [place] tel:[phone] [place] No Information 0- 3 Taccola Luke. . Referring Provider: Yoly [address], [place], [address]. tel:[phone] [facility] [address] [place] [address], [place], [place], [id number], [place] tel:[phone] [place] No Information 9- 3 Taccola Luke. . Referring Provider: Yoly [address], [place], [address]. tel:[phone] [facility], [address] [place] [address], [place], [place], [id number], tel:[phone] [place] No Information 6-202 3 Taccola Luke. . Referring Provider: Yoly [address], [place], [address]. tel:[phone] [facility], [address] [place] [address], [place], [place], [id number], [place] tel:[phone] [place] No Information 3 Hood Zaria. . Referring Provider: Dawson Moses [address], [place], [address]. tel:[phone] [facility] [address] [place] [address], [place], [place], [address], [place] tel:[phone] [place] No Information 3 Taccola Luke. . Referring Provider: Dawson Moses [address], [place], [address]. tel:[phone] [facility], [facility] [address], [place], [place], [address], [place] tel:[phone] [place] No Information 3 Taccola Luke. . Referring Provider: Yoly [address], [place], [address]. tel:[phone] [facility] [address] [place] [address], [place], [place], [address], [place] tel:[phone] [place] No Information 2 Hood Zaira. . Referring Provider: Dawson Moses [address], [place], [address]. tel:[phone] [facility] [address] [place] [address], [place], [place], [address], [place] tel:[phone] [place] No Information 2 2 Taccola Luke. . Referring Provider: Dawson Moses [address], [place], [address]. tel:[phone] [facility], [address] [place] [address], [place], [place], [address], [place] tel:[phone] [place] No Information Dec-2 - 2 Abraham Kalyani. . Referring Provider: Dawson Moses [address], [place], [address]. tel:[phone] [facility], [address] [place] [address] [address], [place], [place], [address], tel:[phone] [place] No Information Dec-2 2 Taccola Luke. . Referring Provider: Dawson Moses [address], [place], [address]. tel:[phone] [facility], [address] [place] [address] [address], [place], [place], [id number], [place] tel:[phone] [place] No Information Dec-1 2 Taccola Luke. . Referring Provider: Dawson Moses [address], [place], [address]. tel:[phone] [facility], [address] [place] [address] [address], [place], [place], [address], [place] tel:[phone] [place] No Information Dec-1 2 Taccola Luke. . Referring Provider: Dawson Moses [address], [place], [address]. tel:[phone], [place], [place], [id number], [place] tel:[phone] [place] No Information Dec-1 2 Taccola Luke. . Referring Provider: Yoly [address], [place], [address]. tel:[phone], [place], [place], [id number], [place] tel:[phone] [place] No Information Dec-1 2 Stanley Laisha. . Referring Provider: Dawson Moses [address], [place], [address]. tel:[phone] [facility], [address] [place] [address], [place], [place], [address], [place] tel:[phone] [place] No Information Dec-1 2-202 2 Taccola Luke. . Referring Provider: Yoly [address], [place], [address]. tel:[phone] [facility] [address] [place] [address], [place], [place], [address], [place] tel:[phone] [place] No Information Dec-0 9-202 2 Taccola Luke. . Referring Provider: Yoly [address], [place], [address]. tel:[phone] [facility], [address] [place] [address], [place], [place], [id number], tel:[phone] [place] No Information Dec-0 8-202 2 Taccola Luke. . Referring Provider: Yoly [address], [place], [address]. tel:[phone] [facility] [address] [place] [address], [place], [place], [address], [place] tel:[phone] [place] No Information Dec-0 7-202 2 Taccola Luke. . Referring Provider: Yoly [address], [place], [address]. tel:[phone] [facility] [place] [address], [place], [place], [address], [place] tel:[phone] [place] No Information Dec-0 5-202 2 Taccola Luke. . Referring Provider: Yoly [address], [place], [address]. tel:[phone] [facility], [address] [place] [address], [place], [place], [id number], [place] tel:[phone] [place] No Information Dec-0 2-202 2 Taccola Luke. . Referring Provider: Dawson Moses [address], [place], [address]. tel:[phone] [place] [address] [place] [address], [place], [place], [id number], tel:[phone] [place] No Information Dec-0 1-202 2 Abraham Kalyani. . Referring Provider: Dawson Moses [address], [place], [address]. tel:[phone] [facility], [address] [place] [address] [address], [place], [place], [id number], [place] tel:[phone] [place] No Information Nov-3 0-202 2 Taccola Luke. . Referring Provider: Dawson Moses [address], [place], [address]. tel:[phone] [facility] [address] [place] [address], [place], [place], [address], [place] tel:[phone] [place] No Information Nov-2 9- 2 Liana Lety. . Referring Provider: Dawson Moses [address], [place], [address]. tel:[phone] [facility] [address], [place], [place], [address], [place] tel:[phone] [place] No Information Nov-2 8 2 Taccola Luke. . Referring Provider: Dawson Moses [address], [place], [address]. tel:[phone] [facility] [address] [place] [address], [place], [place], [address], [place] tel:[phone] [place] No Information Nov-2 5- 2 Taccola Luke. . Referring Provider: Dawson Moses [address], [place], [address]. tel:[phone] [facility], [address] [place] [address], [place], [place], [address], [place] tel:[phone] [place] No Information Nov-2 3-202 2 Taccola Luke. . Referring Provider: Yoly [address], [place], [address]. tel:[phone] [facility], [address] [place] [address], [place], [place], [address], [place] tel:[phone] [place] No Information Nov-2 2-202 2 Abraham Kalyani. . Referring Provider: Yoly [address], [place], [address]. tel:[phone] [facility] [address] [place] [address], [place], [place], [address], tel:[phone] [place] No Information Nov-1 4-202 2 Taccola Luke. . Referring Provider: Yoly [address], [place], [address]. tel:[phone] [facility] [address], [place], [place], [id number], [place] tel:[phone] [place] No Information Nov-1 1-202 2 Taccola Luke. . Referring Provider: Yoly [address], [place], [address]. tel:[phone] [facility] [address], [place], [place], [id number], [place] tel:[phone] [place] No Information Nov-0 9-202 2 Taccola Luke. . Referring Provider: Yoly [address], [place], [address]. tel:[phone] [facility] [address], [place], [place], [address], [place] tel:[phone] [place] No Information Nov-0 7-202 2 Taccola Luke. . Referring Provider: Dawson Moses [address], [place], [address]. tel:[phone] [place] [address], [place], [place], [id number], tel:[phone] [place] No Information Nov-0 4-202 2 Taccola Luke. . Referring Provider: Yoly [address], [place], [address]. tel:[phone] [facility], [address], [place], [place], [address], [place] tel:[phone] [place] No Information Nov-0 2-202 2 Taccola Luke. . Referring Provider: Yoly [address], [place], [address]. tel:[phone] [place] [address], [place], [place], [id number], [place] tel:[phone] [place] No Information Oct-3 1-202 2 Taccola Luke. . Referring Provider: Y[address], [place], [address]. tel:[phone] [facility] [address], [place], [place], [id number], [place] tel:[phone] [place] No Information Oct-2 8-202 2 Taccola Luke. . Referring Provider: Dawson Moses [address], [place], [address]. tel:[phone] [facility] [address], [place], [place], [id number], [place] tel:[phone] [place] No Information Oct-2 1-202 2 Taccola Luke. . Referring Provider: Yoly [address], [place], [address]. tel:[phone] [facility], [address], [place], [place], [id number], tel:[phone] [place] No Information Oct-1 7-202 2 Taccola Luke. . Referring Provider: Y[address], [place], [address]. tel:[phone] [facility], [address] [place] [address] [address], [place], [place], [id number], tel:[phone] [place] No Information Oct-1 2-202 2 Taccola Luke. . Referring Provider: Y[address], [place], [address]. tel:[phone], [place], [place], [id number], tel:[phone] [place] No Information Oct-1 0-202 2 Taccola Luke. . Referring Provider: Y[address], [place], [address]. tel:[phone] [facility], [facility] [address], [place], [place], [id number], tel:[phone] [place] No Information Oct-0 7-202 2 Taccola Luke. . Referring Provider: Y[address], [place], [address]. tel:[phone] [facility] [address], [place], [place], [address], [place] tel:[phone] [place] No Information Oct-0 6-202 2 Taccola Luke. . Referring Provider: Y[address], [place], [address]. tel:[phone] [facility], [address], [place], [place], [address], tel:[phone] [place] No Information Oct-0 3-202 2 Taccola Luke. . Referring Provider: Dawson Bagwe, [address], [place], [address]. tel:[phone] [facility] [address], [place], [place], [address], [place] tel:[phone] [place] No Information Sep-3 0-202 2 Taccola Luke. . Referring Provider: Y[address], [place], [address]. tel:[phone] [facility], [address], [place], [place], [id number], [place] tel:[phone] [place] No Information Sep-2 8-202 2 Taccola Luke. . Referring Provider: Y[address], [place], [address]. tel:[phone] [facility], [facility] [address], [place], [place], [address], [place] tel:[phone] [place] No Information Sep-2 6-202 2 Taccola Luke. . Referring Provider: [address], [place], [address]. tel:[phone] [facility] [address], [place], [place], [id number], [place] tel:[phone] [place] No Information Sep-2 3-202 2 Taccola Luke. . Referring Provider: Y[address], [place], [address]. tel:[phone] [facility] [address], [place], [place], [address], [place] tel:[phone] [place] No Information Sep-2 0-202 2 Taccola Luke. . Referring Provider: Yoly [address], [place], [address]. tel:[phone] [facility], [address], [place], [place], [id number], [place] tel:[phone] [place] No Information 2 Hood Zaria. . Referring Provider: Cecile Rootamparo , [place], [address]. tel:[phone] [facility], [address] [place], [place] [address], [place], [place], [address], tel:[phone] [place] No Information 2 Taccola Luke. . Referring Provider: [facility], [place], [address]. tel:[phone] [place] [address], [address] [place] [address], [place], [place], [id number], tel:[phone] [place] No Information 2 Taccola Luke. . Referring Provider: Cecile Rootamparo , [place], [address]. tel:[phone] [place] [address], [address] [place] [address], [place], [place], [id number], [place] tel:[phone] [place] No Information 2 Taccola Luke. . Referring Provider: Cecile Rootamparo , [place], [address]. tel:[phone] [facility], [address] [place] [address], [place], [place], [id number], [place] tel:[phone] [place] No Information 2 Taccola Luke. . Referring Provider: Cecile Rootamparo , [place], [address]. tel:[phone] [facility], [address] [place] [address], [place], [place], [id number], [place] tel:[phone] [place] No Information 2 Hood Zaria. . Referring Provider: Cecile Root , [place], [address]. tel:[phone] [facility], [address], [place], [place], [id number], [place] tel:[phone] [place] No Information 1 2 Taccola Luke. . Referring Provider: [facility], [place], [address]. tel:[phone] [facility] [address], [place], [place], [id number], [place] tel:[phone] [place] No Information 0 2 Taccola Luke. . Referring Provider: [facility], [place], [address]. tel:[phone] [place] [address], [address] [place] [address], [place], [place], [id number], tel:[phone] [place] No Information Dec-0 2 Hood Zaria. . Referring Provider: [facility], [place], [address]. tel:[phone] [place] [address], [address] [place] [address], [place], [id number], tel:[phone] [place] No Information 0 2 Liana Lety. . Referring Provider: Cecile Rootamparo , [place], [address]. tel:[phone] [facility], [address], [place], [place], [address], [place] tel:[phone] [place] No Information 0 2 Liana Lety. . Referring Provider: [facility], [place], [address]. tel:[phone] [facility], [address], [place], [place], [id number], [place] tel:[phone] [place] No Information 2 Lance sosa . Referring Provider: Maurice Clayton, Ivonne4 [facility], [place], [address]. tel:[phone] [facility], [address], [place], [place], [id number], [place] tel:[phone] [place] No Information 2 Taccola Luke. . Referring Provider: Cecile Root [facility], [place], [address]. tel:[phone] [facility], [facility] [address], [place], [place], [address], [place] tel:[phone] [place] No Information 2 Taccola Luke. . Referring Provider: Cecile Root [facility], [place], [address]. tel:[phone] [facility], [address] [place], [place] [address], [place], [place], [id number], [place] tel:[phone] [place] No Information 2 Lance sosa . Referring Provider: Cecile Root [facility], [place], [address]. tel:[phone] [facility], [address] [place], [place] [address], [place], [place], [address], [place] tel:[phone] [place] No Information 2 Taccola Luke. . Referring Provider: Cecile Root [facility], [place], [address]. tel:[phone] [facility], [address], [place], [place], [address], [place] tel:[phone] [place] No Information 2 Taccola Luke. . Referring Provider: Cecile Root [facility], [place], [address]. tel:[phone] [facility], [address] [address], [place], [place], [address], tel:[phone] [place] No Information 2 Taccola Luke. . Referring Provider: Cec[address], [place], [address]. tel:[phone] [place] [address] [place] [address], [place], [place], [address], tel:[phone] [place] No Information 2 Taccola Luke. . Referring Provider: Cecile Rootamparo [address], [place], [address]. tel:[phone] [place] [address], [place], [place], [address], tel:[phone] [place] No Information 0 2 Taccola Luke. . Referring Provider: Cec[address], [place], [address]. tel:[phone], [id number], tel:[phone] [place] No Information 2 Taccola Luke. . Referring Provider: Cec[address], [place], [address]. tel:[phone], [id number], tel:[phone] [place] No Information 2 Taccola Luke. . Referring Provider: Cec[address], [place], [address]. tel:[phone] Family History Family Member Type Diagnosis Age At Onset No Information Payers Payer name Insurance type Covered green party ID Annmarie reid(s) [facility] [id number] Social History Type Description Quantity Date Captured Comments Sex Female Smoking Status No Information Chief Complaint And Reason For Visit No Information Reason For Referral Reason For Referral No Information History Of Present Illness Encounter Date Complaint History Of Prese nt Illness No Information Functional Status Date Functional Assessmen t No Information Instructions Date Instruction Additional Infor meng Dietary needs education Related to Overweight Prescribed activity/exercise edu cation Related to Overweight Dietary needs education Related to Overweight Dietary needs education Related to Overweight Dietary needs education Related to Overweight Dietary needs education Related to Overweight Prescribed activity/exercise edu cation Related to Overweight Prescribed activity/exercise edu cation Related to Overweight Prescribed activity/exercise edu cation Related to Overweight Prescribed activity/exercise edu cation Related to Overweight Assessments Type Assessment Date No Information Patient Care Teams Name Effective Dates (start - stop) Status Members No Information
[2024-07-02 10:09] VITALS: BP 151/70; PULSE 61; RESP 16; TEMP 36.7; O2SAT 100
--- NOTE | 2024-07-02 12:27 | ED.GENADULT ---
HPI - General Adult General Chief complaint: Extremity Injury, Upper Stated complaint: right wrist injury Time Seen by Provider: 07/02/24 12:16 History of Present Illness HPI narrative: 43-year-old female present to the emergency department for evaluation for right wrist pain. Patient states she was lifting something at work yesterday and felt a pop in her right lateral wrist. Patient states the pain has been worsening over the last 2 days. Patient attempted to work today and was sent home due to discomfort. Related Data Allergies Allergy/AdvReac Type Severity Reaction Status Date / Time ibuprofen Allergy Mild Unknown Verified 07/02/24 12:38 Review of Systems Review of Systems: All systems reviewed & are unremarkable except as noted in HPI and below PMFSH Past Medical History Medical History (Updated 07/02/24 @ 13:16 by Mateo Garcia MD) Encounter for screening examination for sexually transmitted disease Screening mammogram, encounter for Hyperlipidemia GERD (gastroesophageal reflux disease) Anxiety Surgical History Surgical History (Updated 06/09/23 @ 09:00 by GIOVANNA Cochran) Hx of cholecystectomy History of hysteroscopy (~1997) suction D&C missed AB H/O tubal ligation (~2001) History of laparoscopy (01/21/07) Laparoscopy Adhesiolysis H/O left knee surgery (01/09/22) H/O: hysterectomy (~08/2005) TVH tumor inside uterus Family History Family History (Updated 06/09/23 @ 08:57 by GIOVANNA Cochran) Mother Heart disease Hypertension Father Hypertension Daughter Pacemaker syndrome Social History Social History (Updated 06/09/23 @ 08:59 by GIOVANNA Cochran) Smoking status: Never smoker Tobacco type: cigarettes and e-cigarettes/vaping Second hand tobacco smoke exposure: No Alcohol intake: former Alcohol use details: stopped 02/2023 Substance use: never Substance use type: does not use Do You Feel Safe in your Home?: Yes Lack of Transportation: No Lack of Food: Never True Current Housing: I Have Housing Concerned About Future Housing: No Difficulty Paying Gas/Electric Bills: No Difficulty Paying for Meds: No Currently Unemployed: No Education: High School Diploma/GED Difficulty w/ Childcare or Family Care: No Living arrangements: other Additional living arrangements comments: Occupation/Education: occupation 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 HEAD: normocephalic, atraumatic. EYES: PERRLA/EOMI, conjunctivae clear. NOSE: Normal no drainage EARS:TMS clear with good light reflex. THROAT: Pharynx clear, no exudate. NECK: Supple. No adenopathy, no masses. RESPIRATORY: Airway patent, respirations nonlabored. Clear to auscultation bilaterally, no rales, rhonchi, wheezing. CARDIOVASCULAR: Regular rate and rhythm without murmurs rubs or gallops. ABDOMINAL: Soft, nontender, nondistended, normal bowel sounds MUSCULOSKELETAL: Mild edema of the right wrist with no tenderness to right hand, no tenderness of elbow or proximal forearm, limited palmar flexion secondary to discomfort, neurovascularly intact NEURO: Alert. Cranial nerves II through XII intact. Good gait. Good coordination SKIN: Warm, dry. Normal Color Course Vital Signs Vital signs: Vital Signs Temperature 98.1 F 07/02/24 10:09 Pulse Rate 61 07/02/24 10:09 Respiratory Rate 16 07/02/24 10:09 Blood Pressure 151/70 H 07/02/24 10:09 Pulse Oximetry 100 07/02/24 10:09 Oxygen Delivery Room Air 07/02/24 10:09 Temperature 98.1 F 07/02/24 10:09 Pulse Rate 67 07/02/24 13:40 Respiratory Rate 16 07/02/24 13:40 Blood Pressure 125/82 07/02/24 13:40 Pulse Oximetry 100 07/02/24 13:40 Oxygen Delivery Room Air 07/02/24 10:09 Medical Decision Making [facility] Narrative Medical decision making narrative: 43-year-old female presenting to the emergency department for evaluation for right wrist pain. Exam is consistent with a wrist strain and x-rays are negative for acute fracture dislocation. Patient was provided an Eusebio wrap and advised to take Tylenol ibuprofen and ice has directed. Patient was also advised that a volar brace may help provide her some comfort. Patient was encouraged of close follow-up with primary care physician. Differential Diagnosis Differential Diagnosis: Wrist fracture, strain, and fracture Vital Signs Vital Signs: Vital Signs Temperature 98.1 F 07/02/24 10:09 Pulse Rate 61 07/02/24 10:09 Respiratory Rate 16 07/02/24 10:09 Blood Pressure 151/70 H 07/02/24 10:09 Pulse Oximetry 100 07/02/24 10:09 Oxygen Delivery Room Air 07/02/24 10:09 Temperature 98.1 F 07/02/24 10:09 Pulse Rate 67 07/02/24 13:40 Respiratory Rate 16 07/02/24 13:40 Blood Pressure 125/82 07/02/24 13:40 Pulse Oximetry 100 07/02/24 13:40 Oxygen Delivery Room Air 07/02/24 10:09 Imaging Data Radiologist's impression: Impressions Wrist X-Ray 07/02/24 12:54 IMPRESSION: 1. Negative right wrist radiographs. Discharge Plan Discharge Clinical Impression: Right wrist sprain Patient Disposition: Home, Self-Care Condition: Stable Instructions: Antibiotic Form, Wrist Injury (ED) Additional Instructions: Tylenol and ibuprofen for pain control. Eusebio wrap for comfort. A volar brace may provide additional comfort. Have close follow-up with your primary care physician. If you have any worsening symptoms then please call or return to the emergency department. Patient Language: Austrian Prescriptions: No Action ketorolac 10 mg tablet 10 mg PO Q8H PRN (Reason: pain) Qty: 15 0RF Rx Instructions: maximum total duration of 5 days from all oral, intranasal, or parenteral formulations cyclobenzaprine 10 mg tablet 10 mg PO HS PRN (Reason: muscle spasm) Qty: 10 0RF acetaminophen [Tylenol Extra Strength] 500 mg tablet 1,000 mg PO Q6H PRN (Reason: pain) Qty: 50 0RF methocarbamol 750 mg tablet 750 mg PO TID PRN (Reason: muscle spasm) Qty: 30 0RF lidocaine 5 % adhesive patch,medicated 1 patch topical DAILY Qty: 15 0RF Rx Instructions: leave on most painful area for up to 12 hrs ibuprofen 600 mg tablet 600 mg PO TID PRN (Reason: fever or pain) Qty: 30 0RF Follow-up/Referrals: Pietro,MD Beau [Primary Care Provider] -
--- OUTSIDE RECORDS SUMMARY | 2024-07-02 12:36 | XMS_ITS | Clinical Summary ---
Author Organization [facility] Address [address] [place] [address] Care Team Providers Care Parts Sales Representative Name Role Phone Beau Westbrook MD Primary Care Provider Beau Westbrook MD Unavailable [phone] Medications tiZANidine (ZANAFLEX) 4 MG tablet Take [...] Start Date Job End Date WORKS AT [employer] Not on file Not on file Not [...] Years 1981 Annual Physical 1984 PHQ-2 (Physician [place]) 1993 Hepatitis C 11/13/1999 DTaP, Tdap and [...] Influenza Adult (#1) 2024 07/23/2022 PHQ-2 (Physician [place]) 05/11/2024 HPV Vaccines Aged Out No longer [...] patient's age to complete this topic Insurance [facility] Care Teams Parts Sales Representative Relationship Specialty Start Date End Date Beau Westbrook MD [address] [facility] [address] [place] [address] PCP - General INTERNAL MEDICINE 12/08/22 Beau Westbrook MD [address] [phone] INTERNAL MEDICINE 12/08/22
--- OUTSIDE RECORDS SUMMARY | 2024-07-02 12:36 | XMS_ITS | Continuity of Care Document ---
Author Organization [facility] Address [address] [place] [address] [address] [place] [address] Phone Care Team Providers Care Ham Doctor Name Role Phone Sudha Guerra Unavailable Unavailable Procedures Procedure Date Eye Exam, New Patient Advance Directives Directive Yes / No Effective Date File Name No Information Encounters Encounter Description Practice Location Reason(s) For Visit Diagnoses Date Provider Providers Copied on Encounter [facility], [address], [place], [place], [address], [place] tel:[phone] [facility] No Information 3-[address] Mari Haley. [address], [place], [address], [place]. tel:[phone] Family History Family Member Type Diagnosis Age At Onset No Information Payers Payer name Insurance type Covered constitution party ID Authoriza tion(s) Medicaid [facility] [id number] Social History Type Description Quantity Date Captured [...]
--- OUTSIDE RECORDS SUMMARY | 2024-07-02 12:36 | XMS_ITS | Continuity of Care Document ---
Author Organization [facility] Address [address] [place] [address] Phone Care Team Providers Care Geomagnetist Name Role Phone Unavailable Unavailable Unavailable Allergies, [...] Diagnoses Date Provider Providers Copied on Encounter [facility], [address], [place], [place], [id number] , [place] tel:[phone] [facility] No Information No Information OFFICE/OUTPA TIENT VISIT, EST [facility], [address], [place], [place], [address] , [place] tel:[phone] [facility] telehealth (chief complaint) Acute sinusitisNasal congestion Apr-2 7-202 2 No Information OFFICE/OUTPA TIENT VISIT, EST [facility], [address], [place], [place], [address] , [place] tel: [phone] [facility] Test results (chief complaint) Carpal tunnel syndrome of bilateral armsFatigueShortn ess of breathChronic viral hepatitis CNasal congestionHyperli pidemia, unspecified 1 No Information 1ST COMPRE PREV MED E/M NEW PT 18-39 [facility], [address], [place], [place], [id number] , [place] tel: [phone] [facility] Medical exam (chief complaint) Chronic viral hepatitis CEncounter for general adult medical exam w abnormal findingsCarpal tunnel syndrome, bilateral upper limbsShortness of breathFatigue 1 No Information OFFICE/OUTPA TIENT VISIT, NEW [facility], [address], [place], [place], [address] , [place] tel: [phone] T [facility] new patient telehealth (chief complaint) Generalized Anxiety DisorderChronic viral hepatitis CFemale climacteric state 0 No Information As per patient privacy policy some of the clinical information may not be visible. Family History Family Member Type Diagnosis Age At Onset Father Problem Diabetes mellitus Mother Problem Thyroid disorder Sister Problem Cardiovascular disease Payers Payer name Insurance type Covered libertarian ID Authoriza tion(s) No Information Social History [...] help. 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 not worse in any hand. Has not tried any wrist braces or anything. 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 Hx of Hep C- interested in treatment.Told that she had it back at [facility] about 4-5 years ago when she had [...] for echo! Related to Shortness of breath Start statinRecheck cholesterol in about 3-6 months Related to Hyperlipidemia, unspecified Flonase rx Related to Nasal congestion Cleared, yay!! Related to Chron ic viral [...]
[2024-07-02 13:40] VITALS: BP 125/82; PULSE 67; RESP 16; O2SAT 100
== END 2024-07-02 13:51 | disposition home or self-care (01) ==
PROVIDERS: Emergency Provider Emergency Medicine; PCP Internal Medicine
DX: S63.501A Unspecified sprain of right wrist, initial encounter (principal); E78.5 Hyperlipidemia, unspecified; K21.9 Gastro-esophageal reflux disease without esophagitis; Z90.49 Acquired absence of other specified parts of digestive tract; Z90.710 Acquired absence of both cervix and uterus; X50.0XXA Overexertion from strenuous movement or load, initial encounter
CPT/HCPCS: 73110; 99283